=== PATIENT | male | born 1970 | race Caucasian/White ===

== ENCOUNTER 2017-03-30 17:22 | Emergency (ER) | payer MEDICAID, OTHER ==
[2017-03-30 17:22] VITALS: BMI 33.5
[2017-03-30 17:50] VITALS: RESP 18; TEMP 98.4; O2SAT 97
[2017-03-30] MEDS ORDERED: Sodium Chloride 0.9% 1,000 ML IV ONE (17:52)
[2017-03-30] MEDS ORDERED: Sodium Chloride 0.9% 1,000 ML ONE (18:13)
[2017-03-30 18:18] LABS: BASO # 0.1 K/uL (0.0-0.2); BASO % 1.2 % (0.0-2.0); EOS % 0.5 % (0.0-4.0); HEMATOCRIT 39.1 % (35.0-51.0); LYMPH # 2.6 K/uL (1.0-4.3); LYMPH % 37.4 % (20.0-40.0); MEAN CELL VOLUME 84.1 fL (80.0-94.0); MEAN CORPUSCULAR HEMOGLOBIN 28.7 pg (27.0-31.0); MEAN CORPUSCULAR HGB CONC 34.1 g/dL (33.0-37.0); MONO # 0.7 K/uL (0.0-0.8); MONO % 9.6 % (0.0-10.0); NRBC % 0.2 % (0.0-2.0); RED CELL DISTRIBUTION WIDTH 14.1 % (11.5-14.5); WHITE BLOOD COUNT 6.9 K/uL (4.8-10.8)
[2017-03-30 18:23] LABS: CHLORIDE 103 mmol/L (98-107)
[2017-03-30 18:24] LABS: SODIUM 141 mmol/L (132-148)
[2017-03-30 18:27] LABS: ALB/GLOB RATIO 1.3 (1.0-2.1); ALKALINE PHOSPHATASE 90 U/L (38-126); ALT/SGPT 51 U/L (21-72); AST/SGOT 41 U/L (17-59); BILIRUBIN,TOTAL 0.8 mg/dL (0.2-1.3); BLOOD UREA NITROGEN 13 mg/dL (9-20); CALCIUM 8.7 mg/dl (8.6-10.4); CARBON DIOXIDE 22 mmol/L (22-30); GFR AFRICAN-AMERICAN > 60; GLUCOSE,RANDOM 82 mg/dL (75-110); TOTAL PROTEIN 7.3 g/dL (6.3-8.3)
[2017-03-30 18:28] LABS: ALCOHOL SERUM < 10 mg/dl (0-10)
--- NOTE | 2017-03-30 18:31 | C.PDOC ---
History Of Present Illness A 46 year old male, whose past medical history includes hepatitis C, presents to the emergency department for periumbilical cramping pain, which began earlier this morning. The patient reports he had questionable British food for dinner last night. The patient denies any nausea, vomiting, chest pain, shortness of breath, or any other complaints at this time. The patients prior evaluation in May 10 shows injury due to heroin abuse. The patient admits to being clean for the last 7 months. Time Seen by Provider: 03/30/17 17:48 Chief Complaint (Nursing): Abdominal Pain History Per: Patient History/Exam Limitations: no limitations Onset/Duration Of Symptoms: Hrs (x earlier this morning ) Current Symptoms Are (Timing): Still Present Location Of Pain/Discomfort: Periumbilical Associated Symptoms: denies: Nausea, Vomiting Past Medical History Reviewed: Historical Data, Nursing Documentation, Vital Signs Vital Signs: Last Vital Signs Temp 98.4 F 03/30/17 17:25 Pulse 90 03/30/17 18:45 Resp 18 03/30/17 18:45 BP 135/83 03/30/17 18:45 Pulse Ox 97 03/30/17 18:45 - Medical History PMH: Hepatitis (c) Denies: Chronic Kidney Disease Surgical History: Tonsillectomy - [facility] Procedures EXC LES SOFT TISSUE NEC (10/04/14) Family History: States: No Known Family Hx, Unknown Family Hx - Social History Hx Alcohol Use: No Hx Substance Use: Yes (Heroin & cocaine) Review Of Systems Except As Marked, All Systems Reviewed And Found Negative. Cardiovascular: Negative for: Chest Pain Respiratory: Negative for: Shortness of Breath Gastrointestinal: Positive for: Abdominal Pain (periumbilical ) Physical Exam - Physical Exam Appears: Well, Non-toxic, No Acute Distress Skin: Normal Color, Warm, Dry Head: Atraumatic, Normacephalic Eye(s): bilateral: Normal Inspection, PERRL, EOMI Nose: Normal Throat: Normal Neck: Normal Cardiovascular: Rhythm Regular Respiratory: Normal Breath Sounds Gastrointestinal/Abdominal: Tenderness (periumbilical tenderness ), Other (no mcburney's point tenderness; no landry's ) Back: Normal Inspection Extremity: Normal ROM ED Course And Treatment - Laboratory Results Result Diagrams: 03/30/17 18:14 03/30/17 18:14 Lab Interpretation: Normal O2 Sat by Pulse Oximetry: 97 - Radiology CXR: Interpreted by Me CXR Interpretation: Yes: No Acute Disease - Other Rad abd x 2 X-Ray: Interpreted by Me (+ increased stool and gas) Reevaluation Time: 18:34 Reassessment Condition: Improved Medical Decision Making Medical Decision Making: Treatment Plan: -- Obstructive Series -- Toradol, IV Fluids -- Saline Lock Progress Notes: prob constipation/gas normal labs pt did not provide UA/UDS Disposition Doctor Will See Patient In The: Office Counseled Patient/Family Regarding: Studies Performed, Diagnosis - Disposition Referrals: [facility] [Outside] [facility] [Outside] Disposition: HOME/ ROUTINE Disposition Time: 18:34 Condition: GOOD Additional Instructions: trial a laxative now- recommend 1 bottle of Mag Citrate- and re-evaluate your abdominal discomfort after using the bathroom 2-3 times Return to ED in AM as needed Continue diet and exercise improvements Follow-up in our outpatient Clinic as needed. Prescriptions: Magnesium Citrate [[facility] Magnesium Citrate] 300 ml PO ONCE PRN #1 bottle PRN Reason: Constipation Instructions: Gas and Bloating (ED) Forms: Wirama (Serbian) - Clinical Impression Clinical Impression: Abdominal colic - Scribe Statement The provider has reviewed the documentation as recorded by the Scribe Alissa Vásquez All medical record entries made by the Scribe were at my direction and personally dictated by me. I have reviewed the chart and agree that the record accurately reflects my personal performance of the history, physical exam, medical decision making, and the department course for this patient. I have also personally directed, reviewed, and agree with the discharge instructions and disposition.
[2017-03-30 18:45] VITALS: BP 135/83; PULSE 90
[2017-03-30 18:47] LABS: RBC URINE 3 /hpf (0-3); URINE BACTERIA RARE (<OCC); URINE BILIRUBIN NEGATIVE (NEGATIVE); URINE BLOOD NEGATIVE (NEGATIVE); URINE COLOR Amber (YELLOW); URINE GLUCOSE (UA) NORMAL (Normal); URINE KETONE NEGATIVE (NEGATIVE); URINE LEUKOCYTE ESTERASE NEG Leu/uL (Negative); URINE PROTEIN 2+ mg/dL (NEGATIVE); URINE UROBILINOGEN NORMAL mg/dL (0.2-1.0); WBC URINE 1 /hpf (0-5)
--- NOTE | 2017-03-31 08:25 | RAD ---
PROCEDURE: Radiographs of the chest and abdomen (obstructive series) HISTORY: abd pain COMPARISON: No prior. TECHNIQUE: AP radiograph of the chest, with upright and supine radiographs of the abdomen. FINDINGS: CHEST: Lungs: Clear. Cardiovascular: Normal size heart. No pulmonary vascular congestion. Pleura: No pleural fluid. No pneumothorax. Other findings: None. ABDOMEN AND PELVIS: Bowel: Mild- moderate stool retention No evidence of mechanical obstruction. Free air: None. Bones: Unremarkable. Other findings: Possible enlarged spleen. If not already known consider ultrasound IMPRESSION: Unremarkable radiographs of chest. No evidence of mechanical bowel obstruction. Mild - moderate stool retention Possible enlarged spleen. If not already known consider ultrasound
== END 2017-03-30 18:45 | disposition home or self-care (01) ==
LOC: C.ER 17:22
DX: R10.84 Generalized abdominal pain (principal)
CPT/HCPCS: 74022; 80053; 80320; 80324; 80345; 80346; 80349; 80353; 80358; 80361; 81001; 83690; 83992; 85025; 96374; 99285; J1885; J7040

== ENCOUNTER 2017-08-08 06:46 | Inpatient (IN) | payer MEDICAID ==
[2017-08-08 06:47] VITALS: BMI 33.5
[2017-08-08] MEDS ORDERED: Vancomycin 1 GM 1 GM/250 ML BAG IV STA (07:45)
[2017-08-08] MEDS ORDERED: Cefepime 1 GM in Sodium Chloride 0.9% 50 ML IVPB STA (07:46)
[2017-08-08] MEDS ORDERED: Vancomycin 1 GM in Sodium Chloride 0.9% 200 ML IVPB STA (07:50)
[2017-08-08 08:39] LABS: BASO % 0.3 % (0.0-2.0); EOS # 0.1 K/uL (0.0-0.7); EOS % 1.5 % (0.0-4.0); HEMOGLOBIN 11.5 g/dL (12.0-18.0); LYMPH # 0.8 K/uL (1.0-4.3); LYMPH % 13.7 % (20.0-40.0); MEAN CELL VOLUME 83.8 fL (80.0-94.0); MEAN CORPUSCULAR HEMOGLOBIN 28.4 pg (27.0-31.0); MEAN CORPUSCULAR HGB CONC 33.9 g/dL (33.0-37.0); MEAN PLATELET VOLUME 8.7 fL (7.2-11.7); MONO # 0.8 K/uL (0.0-0.8); MONO % 12.3 % (0.0-10.0); NEUT # 4.4 K/uL (1.8-7.0); NEUT % 72.2 % (50.0-75.0); RBC 4.05 Mil/uL (4.40-5.90); WHITE BLOOD COUNT 6.1 K/uL (4.8-10.8)
--- NOTE | 2017-08-08 09:00 | C.PDOC ---
History Of Present Illness 47 y/o male with hx of heroin abuse IVDA, brought by ambulance to the ED for evaluation of left forearm pain/redness/swelling, constipation, right lower rib pain for 2 days. The patient states that he fell on the street and he thinks " he has broken his rib". He denies SOB, fever, abdominal pain, nausea, vomiting , diarrhea. Time Seen by Provider: 08/08/17 07:07 Chief Complaint (Nursing): GI Problem History Per: Patient, EMS Onset/Duration Of Symptoms: Days Current Symptoms Are (Timing): Still Present Severity: Moderate Quality Of Discomfort: "Pain" Associated Symptoms: Constipation. denies: Fever, Vomiting, Diarrhea Exacerbating Factors: denies: Cough Additional History Per: EMS Past Medical History Reviewed: Historical Data, Nursing Documentation, Vital Signs Vital Signs: Last Vital Signs Temp 97.6 F 08/13/17 08:25 Pulse 81 08/13/17 08:25 Resp 20 08/13/17 08:25 BP 109/72 08/13/17 08:25 Pulse Ox 97 08/13/17 08:25 - Medical History PMH: Hepatitis (c) Surgical History: Tonsillectomy - [facility] Procedures EXC LES SOFT TISSUE NEC (10/04/14) Family History: States: No Known Family Hx - Social History Hx Alcohol Use: No Hx Substance Use: Yes (Heroin & cocaine) - Immunization History Hx Tetanus Toxoid Vaccination: No Hx Influenza Vaccination: No Hx Pneumococcal Vaccination: No Review Of Systems Except As Marked, All Systems Reviewed And Found Negative. Constitutional: Negative for: Fever, Chills Cardiovascular: Negative for: Chest Pain, Palpitations Respiratory: Negative for: Cough, Shortness of Breath Gastrointestinal: Positive for: Constipation, Other (right lower rib pain ). Negative for: Nausea, Vomiting, Abdominal Pain, Diarrhea Musculoskeletal: Positive for: Arm Pain (left forearm pain ) Physical Exam - Physical Exam Appears: Non-toxic, Unkempt, Other (in mild pain ) Skin: Warm, Dry Head: Normacephalic, Other (scattered abrasions on face, forehead) Eye(s): bilateral: Normal Inspection, PERRL, EOMI Oral Mucosa: Moist Neck: Normal, Normal ROM, No Midline Cervical Tenderness, No Paracervical Tenderness, No Step Off Deformity, Supple Chest: Tenderness (TTP at right lateral rib, approx rib 10 level) Cardiovascular: Rhythm Regular Respiratory: Normal Breath Sounds, No Rales, No Rhonchi, No Wheezing, Other ( equal breath sounds B/L) Gastrointestinal/Abdominal: Normal Exam, Bowel Sounds, Soft, No Tenderness Extremity: Capillary Refill (< 2 sec all digits ), No Deformity, No Swelling, Other ( left forearm with approx 2cm area of induration with surrounding erythema, (+) TTP , no fluctuance ) Pulses: Left Radial: Normal, Right Radial: Normal Neurological/Psych: Oriented x3 Gait: Steady ED Course And Treatment - Laboratory Results Result Diagrams: 08/09/17 11:32 08/09/17 11:32 O2 Sat by Pulse Oximetry: 99 (RA) Pulse Ox Interpretation: Normal - Other Rad RIBS SERIES X-Ray: Viewed By Me, Read By Radiologist Interpretation: Accession No. : [id number]. Patient Name / ID : REYNA HUTCHINS / [id number]. Exam Date : 08/08/2017 07:48:53 ( Approved ). Study Comment : Sex / Age : M / 47Y. Creator : Monica Grace MD. Dictator : Monica Grace MD. Visual Educator : Welding Machine Operator Resistance : Monica Grace MD. Approver2 : Report Date : 08/08/2017 09:11:05. My Comment : . PROCEDURE: Radiographs of the Chest and Right Ribs. HISTORY: RIGHT SIDED RIB PAIN, S/P FALL. COMPARISON: Chest x-ray performed 09/29/14. TECHNIQUE: Frontal radiograph of the chest and multiple oblique radiographs of the right ribs were obtained. FINDINGS: RIGHT RIBS: No appreciable displaced fracture identified. LUNGS: Indeterminate right hilar/ infrahilar opacity ; pneumonia or adenopathy is not excluded. Please note that chest x-ray has limited sensitivity for the detection of pulmonary masses. PLEURA: No significant pleural effusion. No definite pneumothorax. CARDIOVASCULAR: Borderline cardiomegaly. OTHER FINDINGS: None. IMPRESSION: Indeterminate right hilar/ infrahilar opacity ; pneumonia or adenopathy is not excluded. No appreciable displaced right rib fracture. LEFT FOREARM X-Ray: Viewed By Me, Read By Radiologist Interpretation: Accession No. : [id number]. Patient Name / ID : REYNA HUTCHINS / [id number]. Exam Date : 08/08/2017 07:48:45 ( Approved ). Study Comment : Sex / Age : M / 47Y. Creator : Monica Grace MD. Dictator : Monica Grace MD. Visual Educator : Welding Machine Operator Resistance : Monica Grace MD. Approver2 : Report Date : 08/08/2017 09:01:27. My Comment : . PROCEDURE: Radiographs of the left elbow. HISTORY: ABSCESS, R/O FOREIGN BODY. COMPARISON: None available. FINDINGS: Suboptimal study due to patient condition/positioning. BONES: No acute displaced fracture. JOINTS: No dislocation. SOFT TISSUES: Unremarkable. No evidence of radiopaque foreign body. JOINT EFFUSION: No significant joint effusion. OTHER FINDINGS: None. IMPRESSION: Suboptimal positioning/limited study. No evidence of radiopaque foreign body. Progress Note: Xrays of ribs/chest and right forearm ordered and reviewed. Blood work ordered and reviewed. Patient given IV toradol, IV vancomycin, IV cefepime and IM tetanus vaccination. 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 Disposition - Disposition Disposition: HOSPITALIZED Disposition Time: 11:12 Condition: STABLE - Clinical Impression Clinical Impression: IVDU (intravenous drug user), Heroin abuse, Right arm cellulitis - Scribe Statement The provider has reviewed the documentation as recorded by the Scribe Barbara Muñiz Decision To Admit - Pt Status Changed To: Hospital Disposition Of: Inpatient - Admit Certification Admit to Inpatient:: After my assessment, the patient will require hospitalization for at least two midnights. This is because of the severity of symptoms shown, intensity of services needed, and/or the medical risk in this patient being treated as an outpatient. - InPatient: Physician Admission Certification:: see notes - . Bed Request Type: Regular Admitting Physician: Saad Foster Patient Diagnosis: Heroin abuse, Right arm cellulitis, IVDU (intravenous drug user)
[2017-08-08 09:03] LABS: ALBUMIN 3.1 g/dL (3.5-5.0); ALT/SGPT 62 U/L (21-72); AST/SGOT 66 U/L (17-59); BLOOD UREA NITROGEN 8 mg/dL (9-20); CALCIUM 7.7 mg/dl (8.6-10.4); GFR AFRICAN-AMERICAN > 60; GFR NON-AFRICAN AMERICAN > 60
--- NOTE | 2017-08-08 09:03 | RAD ---
PROCEDURE: Radiographs of the left elbow. HISTORY: ABSCESS, R/O FOREIGN BODY COMPARISON: None available. FINDINGS: Suboptimal study due to patient condition/positioning. BONES: No acute displaced fracture. JOINTS: No dislocation. SOFT TISSUES: Unremarkable. No evidence of radiopaque foreign body. JOINT EFFUSION: No significant joint effusion. OTHER FINDINGS: None IMPRESSION: Suboptimal positioning/limited study. No evidence of radiopaque foreign body.
[2017-08-08 09:06] LABS: ALB/GLOB RATIO 0.9 (1.0-2.1)
--- NOTE | 2017-08-08 09:12 | RAD ---
PROCEDURE: Radiographs of the Chest and Right Ribs. HISTORY: RIGHT SIDED RIB PAIN, S/P FALL COMPARISON: Chest x-ray performed 09/29/14 TECHNIQUE: Frontal radiograph of the chest and multiple oblique radiographs of the right ribs were obtained. FINDINGS: RIGHT RIBS: No appreciable displaced fracture identified. LUNGS: Indeterminate right hilar/ infrahilar opacity ; pneumonia or adenopathy is not excluded. Please note that chest x-ray has limited sensitivity for the detection of pulmonary masses. PLEURA: No significant pleural effusion. No definite pneumothorax. CARDIOVASCULAR: Borderline cardiomegaly. OTHER FINDINGS: None. IMPRESSION: Indeterminate right hilar/ infrahilar opacity ; pneumonia or adenopathy is not excluded. No appreciable displaced right rib fracture.
[2017-08-08] MEDS ORDERED: Potassium Chloride 20 mEq ER Tab PO STA (09:26)
[2017-08-08] MEDS ORDERED: Potassium Chloride 20 mEq ER Tab PO ONE (09:47)
[2017-08-08] MEDS ORDERED: Tetanus/Diphtheria Toxoids 0.5 ml Syringe IM ONE ×2 (09:49→10:06)
[2017-08-08] MEDS: Vancomycin 1 gm/NS 200 ml 1 GM/200 ML BAG IVPB SCH (16:24)
[2017-08-08] MEDS: Cefepime IV 1 gm in Dextrose 1 GM/50 ML BAG IVPB SCH ×2 (16:25→22:06)
[2017-08-08] MEDS: Potassium Chloride 20 mEq ER Tab PO SCH (18:18)
--- NOTE | 2017-08-08 23:36 | CP.PCM.HP ---
History of Present Illness - History of Present Illness History of Present Illness: CC: left arm pain, swelling HPI: 47 y/o white male hx heroin abuse IVDA, brought by ambulance presents to the ED c/o left forearm pain assocuated with IVD absue ending up in cellulitis , constipation, right lower rib pain, and swelling for 2 days. the patient states that he fell on the street and he thinks " he has broken his rib". The patient denies SOB, fever, abdominal pain, nausea, vomiting, and diarrhea. Present on Admission - Present on Admission Any Indicators Present on Admission: Yes Review of Systems - Review of Systems Systems not reviewed;Unavailable: Unstable Vital Signs - Constitutional Constitutional: Fatigue, Lethargy, Malaise - EENT Nose/Mouth/Throat: absent: As Per HPI, Epistaxis, Nasal Congestion, Nasal Discharge, Nasal Obstruction, Nasal Trauma, Nose Pain, Post Nasal Drip, Sinus Pain, Sinus Pressure, Bleeding Gums, Change in Voice, Dental Pain, Dry Mouth, Dysphagia, Halitosis, Hoarsness, Lip Swelling, Mouth Lesions, Mouth Pain, Odynophagia, Sore Throat, Throat Swelling, Tongue Swelling, Facial Pain, Neck Pain, Neck Mass, Other - Cardiovascular Cardiovascular: Lightheadedness, Rapid Heart Rate - Respiratory Respiratory: Dyspnea on Exertion, Chest Congestion - Gastrointestinal Gastrointestinal: Abdominal Pain, Cramping, Diarrhea, Vomiting - Genitourinary Genitourinary: absent: As Per HPI, Change in Urinary Stream, Difficulty Urinating, Dysuria, Flank Pain, Hematuria, Pyuria, Nocturia, Urinary Incontinence, Urinary Frequency, Urinary Hesitance, Urinary Urgency, Voiding Freq/Small Amts, Freq UTI, Hx Renal/Bladder Calculi, Hx /Renal Surgery, Bladder Distension, Other Past Patient History - Infectious Disease Hx of Infectious Diseases: None - Past Medical History & Family History Past Medical History?: Yes - Past Social History Smoking Status: Heavy Smoker > 10 Cigarettes Daily - CARDIAC Hx Cardiac Disorders: No - PULMONARY Hx Respiratory Disorders: No - NEUROLOGICAL Hx Neurological Disorder: No - HEENT Hx HEENT Problems: No - RENAL Hx Chronic Kidney Disease: No - HEMATOLOGICAL/ONCOLOGICAL Hx Blood Disorders: Yes Hx Hepatitis C: Yes - INTEGUMENTARY Hx Dermatological Problems: No - MUSCULOSKELETAL/RHEUMATOLOGICAL Hx Falls: Yes - GASTROINTESTINAL Hx Gastrointestinal Disorders: No - GENITOURINARY/GYNECOLOGICAL Hx Genitourinary Disorders: No - PSYCHIATRIC Hx Substance Use: Yes (Heroin & cocaine) - SURGICAL HISTORY Hx Tonsillectomy: Yes - ANESTHESIA Hx Anesthesia: Yes Hx Anesthesia Reactions: No Hx Malignant Hyperthermia: No Meds Allergies/Adverse Reactions: Allergies Allergy/AdvReac Type Severity Reaction Status Date / Time No Known Allergies Allergy Verified 05/26/17 10:31 Physical Exam - Constitutional Appears: Toxic - Head Exam Head Exam: ATRAUMATIC, NORMAL INSPECTION, NORMOCEPHALIC - Eye Exam Eye Exam: Conjunctival injection - ENT Exam ENT Exam: Mucous Membranes Dry - Neck Exam Neck exam: Positive for: Normal Inspection - Respiratory Exam Respiratory Exam: Clear to Auscultation Bilateral, NORMAL BREATHING PATTERN - Cardiovascular Exam Cardiovascular Exam: Tachycardia, +S1, +S2 - GI/Abdominal Exam GI & Abdominal Exam: Normal Bowel Sounds, Soft. absent: Tenderness - Extremities Exam Additional comments: left arm swelling, abscess Results - Vital Signs Recent Vital Signs: Last Vital Signs Temp 97.9 F 08/08/17 12:38 Pulse 60 08/08/17 12:38 Resp 17 08/08/17 12:38 BP 134/74 08/08/17 12:38 Pulse Ox 99 08/08/17 12:38 - Labs Result Diagrams: 08/08/17 08:28 08/08/17 08:28 Labs: Laboratory Results - last 24 hr 08/08/17 08/08/17 08:28 08:28 WBC 6.1 RBC 4.05 L Hgb 11.5 L Hct 33.9 L MCV 83.8 MCH 28.4 MCHC 33.9 RDW 15.0 H Plt Count 197 MPV 8.7 Neut % (Auto) 72.2 Lymph % (Auto) 13.7 L Coke % (Auto) 12.3 H Eos % (Auto) 1.5 Baso % (Auto) 0.3 Neut # 4.4 Lymph # 0.8 L Coke # 0.8 Eos # 0.1 Baso # 0.0 Sodium 129 L Potassium 3.3 L Chloride 95 L Carbon Dioxide 28 Anion Gap 9 L BUN 8 L Creatinine 0.8 Est GFR ( Amer) > 60 Est GFR (Non-Af Amer) > 60 Random Glucose 99 Calcium 7.7 L Total Bilirubin 0.6 AST 66 H D ALT 62 Alkaline Phosphatase 71 Total Protein 6.4 Albumin 3.1 L D Globulin 3.3 Albumin/Globulin Ratio 0.9 L Assessment & Plan (1) Abdominal colic Status: Acute (2) Laceration of arm Status: Acute (3) Opioid abuse with intoxication Status: Acute (4) Substance abuse Status: Acute
[2017-08-09] MEDS: Vancomycin 1 gm/NS 200 ml 1 GM/200 ML BAG IVPB SCH ×2 (02:30→14:45)
[2017-08-09] MEDS: Cefepime IV 1 gm in Dextrose 1 GM/50 ML BAG IVPB SCH ×3 (06:00→22:02)
[2017-08-09] MEDS: Potassium Chloride 20 mEq ER Tab PO SCH (10:49)
[2017-08-09 11:40] LABS: HEMOGLOBIN 13.1 g/dL (12.0-18.0); MEAN CELL VOLUME 83.8 fL (80.0-94.0); MEAN CORPUSCULAR HEMOGLOBIN 28.5 pg (27.0-31.0); MEAN PLATELET VOLUME 8.4 fL (7.2-11.7); RBC 4.59 Mil/uL (4.40-5.90); RED CELL DISTRIBUTION WIDTH 15.6 % (11.5-14.5); WHITE BLOOD COUNT 6.1 K/uL (4.8-10.8)
[2017-08-09 12:13] LABS: BLOOD UREA NITROGEN 9 mg/dL (9-20); CALCIUM 7.8 mg/dl (8.6-10.4); GFR AFRICAN-AMERICAN > 60; GFR NON-AFRICAN AMERICAN > 60
--- NOTE | 2017-08-09 21:50 | CP.PCM.PN ---
Subjective - Date & Time of Evaluation Date of Evaluation: 08/09/17 Time of Evaluation: 18:00 - Subjective Subjective: Pt seen and evalauted, left arm is infected and he is on vancomycin and cfepime , blood cultures are neg Objective - Vital Signs/Intake and Output Vital Signs (last 24 hours): Temp Pulse Resp BP Pulse Ox 98.1 F 68 20 129/67 100 08/09/17 16:00 08/09/17 16:00 08/09/17 16:00 08/09/17 16:00 08/09/17 16:00 Intake and Output: 08/09/17 08/10/17 18:59 06:59 Intake Total 730 Balance 730 - Medications Medications: Current Medications Clonazepam (Klonopin) 0.5 mg PO BID [facility] Last Admin: 08/09/17 17:39 Dose: 0.5 mg Cefepime HCl (Maxipime Iv 1 Gm Premix) 1 gm in 50 mls @ 100 mls/hr IVPB Q8H [facility] Last Admin: 08/09/17 14:13 Dose: 100 mls/hr Vancomycin/Sodium Chloride (Vancomycin 1 Gm/Ns 200 Ml) 1 gm in 200 mls @ 133.333 mls/hr IVPB Q12H [facility] Last Admin: 08/09/17 14:45 Dose: 133.333 mls/hr Pneumococcal Polyvalent Vaccine (Pneumovax 23 Vaccine) 0.5 ml IM .ONCE ONE Stop: 08/11/17 10:01 Potassium Chloride (K-Dur 20 Meq Er Tab) 20 meq PO DAILY [facility] Stop: 08/10/17 23:59 Last Admin: 08/09/17 10:49 Dose: 20 meq - Labs Labs: 08/09/17 11:32 08/09/17 11:32 - Constitutional Appears: No Acute Distress - Head Exam Head Exam: ATRAUMATIC, NORMAL INSPECTION, NORMOCEPHALIC - Eye Exam Eye Exam: EOMI, Normal appearance, PERRL Pupil Exam: NORMAL ACCOMODATION, PERRL - Respiratory Exam Respiratory Exam: Clear to Ausculation Bilateral, NORMAL BREATHING PATTERN - Cardiovascular Exam Cardiovascular Exam: REGULAR RHYTHM, +S1, +S2. absent: Murmur - GI/Abdominal Exam GI & Abdominal Exam: Soft, Normal Bowel Sounds. absent: Tenderness Assessment and Plan (1) Abdominal colic Status: Acute (2) Laceration of arm Status: Acute (3) Opioid abuse with intoxication Status: Acute (4) Substance abuse Status: Acute (5) Cellulitis of arm Assessment & Plan: on vancomycin cefepime'blood cultures neg Status: Acute
[2017-08-10] MEDS: Vancomycin 1 gm/NS 200 ml 1 GM/200 ML BAG IVPB SCH ×2 (02:52→15:55)
[2017-08-10] MEDS: Cefepime IV 1 gm in Dextrose 1 GM/50 ML BAG IVPB SCH ×3 (06:00→22:00)
[2017-08-10 09:15] VITALS: RESP 20
[2017-08-10] MEDS: Potassium Chloride 20 mEq ER Tab PO SCH (09:23)
[2017-08-10] MEDS ORDERED: Aluminum Hydroxide/Magnesium Hydroxide Susp (30 mL) PO PRN (15:29)
--- NOTE | 2017-08-10 15:29 | PCM.PSYCH ---
Initial Psychiatric Evaluation - Initial Psychiatric Evaluation Type of Admission: Voluntary Legal Status: Capacity Chief Complaint (in patient's own words): I'm withdrawing from heroin.' Current Medications: Active Medications Generic Name Dose Route Start Last Admin Trade Name Eugenie PRN Reason Stop Dose Admin Clonazepam 0.5 mg 08/08/17 18:00 08/10/17 09:23 Klonopin PO 0.5 mg BID [facility] Administration Cefepime HCl 1 gm in 50 mls @ 100 mls/hr 08/08/17 15:00 08/10/17 14:52 Maxipime Iv 1 Gm Premix IVPB 100 mls/hr Q8H [facility] Administration Vancomycin/Sodium Chloride 1 gm in 200 mls @ 133.333 mls/hr 08/08/17 15:30 02:52 Vancomycin 1 Gm/Ns 200 Ml IVPB 133.333 mls/hr Q12H [facility] Administration Pneumococcal Polyvalent Vaccine 0.5 ml 08/11/17 10:00 Pneumovax 23 Vaccine IM 08/11/17 10:01 .ONCE ONE Potassium Chloride 20 meq 08/08/17 18:00 08/10/17 09:23 K-Dur 20 Meq Er Tab PO 08/10/17 23:59 20 meq DAILY [facility] Administration Past Psychiatric History - Past Psychiatric History Previous Treatment History: Inpatient Pertinent Medical Hx (Current Medical&Sleep Prob, Allergies): Allergies Allergy/AdvReac Type Severity Reaction Status Date / Time No Known Allergies Allergy Verified 05/26/17 10:31 No Known Home Med 08/08/17 Review of Systems - Review of Systems All systems: reviewed and no additional remarkable complaints except - Psychiatric Psychiatric: Anxiety, Irritability Mental Status Examination - Personal Presentation Personal Presentation: Looks stated age - Affect Affect: Constricted - Motor Activity Motor Activity: Calm - Reliability in Providing Information Reliability in Providing Information: Fair - Speech Speech: Organized - Mood Mood: Anxious - Formal Thought Process Formal Thought Process: No Impairment - Obsessions/Compulsions Obsessions: No Compulsions: No - Cognitive Functions Orientation: Person, Place, Situation, Time Sensorium: Alert Attention/Concentration: Attentive Abstract Thinking: [place] Estimate of Intelligence: Below average Judgement: Imparied, as evidence by: Poor judgement, Intact, as evidence by: Insight regarding need for hospitalization - Risk Risk: Withdrawal, Diminished functioning - Limitations Limitations: Living alone DSM 5 DX - DSM 5 DSM 5 Diagnosis: Opiate use disorder severe Opiate withdrawal - Recommended/Plan of Treatment Treatment Recommendations and Plan of Treatment: Opiate use disorder severe Opiate withdrawal - Smoking Cessation Smoking Cessation Initiated: No
[2017-08-10 16:07] LABS: BARBITURATES, UR NEGATIVE (NEGATIVE); BENZODIAZEPINES, UR NEGATIVE (NEGATIVE); OPIATES, UR NEGATIVE (NEGATIVE); PHENCYCLIDINE, UR NEGATIVE (NEGATIVE)
[2017-08-10] MEDS: Vitamins A & D Oint UD Foilpak TOP SCH (20:02)
--- NOTE | 2017-08-10 22:45 | CP.PCM.PN ---
Subjective - Date & Time of Evaluation Date of Evaluation: 08/10/17 Time of Evaluation: 17:00 - Subjective Subjective: Pt seen and examined at bedside, improved cellulitis in left arm, decreased redness, swelling, pain, afebrile, pt is on IV antibiotics and repeat blood cultures will be done Objective - Vital Signs/Intake and Output Vital Signs (last 24 hours): Temp Pulse Resp BP Pulse Ox 97.5 F L 67 20 131/81 98 08/10/17 15:15 08/10/17 15:15 08/10/17 15:15 08/10/17 15:15 08/10/17 15:15 Intake and Output: 08/10/17 08/11/17 18:59 06:59 Intake Total 650 1050 Balance 650 1050 - Medications Medications: Current Medications Al Hydrox/Mg Hydrox/Simethicone (Maalox 30 Ml) 30 ml PO TID PRN PRN Reason: Indigestion / Heartburn Clonazepam (Klonopin) 0.5 mg PO BID [facility]LY [facility], [facility]1983 Last Admin: 08/10/17 17:23 Dose: 0.5 mg Clonidine HCl (Catapres) 0.1 mg PO Q8 PRN PRN Reason: COWS Score More or Equal to 5 Last Admin: 08/10/17 22:25 Dose: 0.1 mg Hydroxyzine HCl (Atarax) 25 mg PO Q6 PRN PRN Reason: Agitation Cefepime HCl (Maxipime Iv 1 Gm Premix) 1 gm in 50 mls @ 100 mls/hr IVPB Q8H [facility]LY [facility], [facility]1983 Last Admin: 08/10/17 22:00 Dose: 100 mls/hr Vancomycin/Sodium Chloride (Vancomycin 1 Gm/Ns 200 Ml) 1 gm in 200 mls @ 133.333 mls/hr IVPB Q12H [facility], [facility]1983 Last Admin: 08/10/17 15:55 Dose: 133.333 mls/hr Loperamide HCl (Imodium) 2 mg PO Q8 PRN PRN Reason: Diarrhea Methadone HCl (Methadone) 15 mg PO DAILY [facility] PRN Reason: Taper Stop: 08/14/17 09:59 Ondansetron HCl (Zofran Tab) 4 mg PO Q8 PRN PRN Reason: Nausea/Vomiting Pneumococcal Polyvalent Vaccine (Pneumovax 23 Vaccine) 0.5 ml IM .ONCE ONE Stop: 08/11/17 10:01 Potassium Chloride (K-Dur 20 Meq Er Tab) 20 meq PO DAILY [place] Stop: 08/10/17 23:59 Last Admin: 08/10/17 09:23 Dose: 20 meq Pseudoephedrine HCl (Sudafed Tab) 60 mg PO QID PRN PRN Reason: Nasal/Sinus Congestion Vitamin A (Vitamin A & D Oint Ud Foilpak) 0.5 ea TOP Q4 [facility] Last Admin: 08/10/17 20:02 Dose: 0.5 ea - Labs Labs: 08/09/17 11:32 08/09/17 11:32 - Constitutional Appears: No Acute Distress - Head Exam Head Exam: ATRAUMATIC, NORMAL INSPECTION, NORMOCEPHALIC - Eye Exam Eye Exam: EOMI, Normal appearance, PERRL Pupil Exam: NORMAL ACCOMODATION, PERRL - Respiratory Exam Respiratory Exam: Clear to Ausculation Bilateral, NORMAL BREATHING PATTERN - Cardiovascular Exam Cardiovascular Exam: REGULAR RHYTHM, +S1, +S2. absent: Murmur - GI/Abdominal Exam GI & Abdominal Exam: Soft, Normal Bowel Sounds. absent: Tenderness - Rectal Exam Rectal Exam: Deferred - Neurological Exam Neurological Exam: Alert, Awake, CN II-XII Intact, Normal Gait, Oriented x3 - Skin Skin Exam: Erythema Additional comments: redness, swelling on left arm Assessment and Plan (1) Abdominal colic Status: Acute (2) Laceration of arm Status: Acute (3) Opioid abuse with intoxication Status: Acute (4) Substance abuse Status: Acute (5) Cellulitis of arm Assessment & Plan: pt is on IV antibiotics and repeat blood cultures will be done Status: Acute
[2017-08-11] MEDS: Vitamins A & D Oint UD Foilpak TOP SCH ×6 (00:11→20:40)
[2017-08-11] MEDS: Vancomycin 1 gm/NS 200 ml 1 GM/200 ML BAG IVPB SCH ×2 (02:55→14:31)
[2017-08-11] MEDS: Cefepime IV 1 gm in Dextrose 1 GM/50 ML BAG IVPB SCH ×3 (06:00→22:05)
--- NOTE | 2017-08-11 08:58 | CP.PCM.PN ---
Subjective - Date & Time of Evaluation Date of Evaluation: 08/11/17 Time of Evaluation: 17:00 - Subjective Subjective: Pt seen and examined, pt is on vancomycin, zosyn for left UE cellulitis most likely MRSA, on wound care Objective - Vital Signs/Intake and Output Vital Signs (last 24 hours): Temp Pulse Resp BP Pulse Ox 97.9 F 67 20 124/74 98 08/11/17 08:04 08/11/17 08:04 08/11/17 08:04 08/11/17 08:04 08/11/17 08:04 Intake and Output: 08/11/17 08/11/17 06:59 18:59 Intake Total 1850 Balance 1850 - Medications Medications: Current Medications Al Hydrox/Mg Hydrox/Simethicone (Maalox 30 Ml) 30 ml PO TID PRN PRN Reason: Indigestion / Heartburn Clonazepam (Klonopin) 0.5 mg PO BID [facility] Last Admin: 08/10/17 17:23 Dose: 0.5 mg Clonidine HCl (Catapres) 0.1 mg PO Q8 PRN PRN Reason: COWS Score More or Equal to 5 Last Admin: 08/10/17 22:25 Dose: 0.1 mg Hydroxyzine HCl (Atarax) 25 mg PO Q6 PRN PRN Reason: Agitation Cefepime HCl (Maxipime Iv 1 Gm Premix) 1 gm in 50 mls @ 100 mls/hr IVPB Q8H [facility] Last Admin: 08/11/17 06:00 Dose: 100 mls/hr Vancomycin/Sodium Chloride (Vancomycin 1 Gm/Ns 200 Ml) 1 gm in 200 mls @ 133.333 mls/hr IVPB Q12H [facility] Last Admin: 08/11/17 02:55 Dose: 133.333 mls/hr Loperamide HCl (Imodium) 2 mg PO Q8 PRN PRN Reason: Diarrhea Methadone HCl (Methadone) 15 mg PO DAILY [facility] PRN Reason: Taper Stop: 08/14/17 09:59 Ondansetron HCl (Zofran Tab) 4 mg PO Q8 PRN PRN Reason: Nausea/Vomiting Pneumococcal Polyvalent Vaccine (Pneumovax 23 Vaccine) 0.5 ml IM .ONCE ONE Stop: 08/11/17 10:01 Pseudoephedrine HCl (Sudafed Tab) 60 mg PO QID PRN PRN Reason: Nasal/Sinus Congestion Vitamin A (Vitamin A & D Oint Ud Foilpak) 0.5 ea TOP Q4 [facility] Last Admin: 08/11/17 03:00 Dose: 0.5 ea - Labs Labs: 08/09/17 11:32 08/09/17 11:32 - Constitutional Appears: No Acute Distress - Head Exam Head Exam: ATRAUMATIC, NORMAL INSPECTION, NORMOCEPHALIC - Eye Exam Eye Exam: EOMI, Normal appearance, PERRL Pupil Exam: NORMAL ACCOMODATION, PERRL - ENT Exam ENT Exam: Mucous Membranes Moist, Normal Exam - Respiratory Exam Respiratory Exam: Clear to Ausculation Bilateral, NORMAL BREATHING PATTERN - Cardiovascular Exam Cardiovascular Exam: REGULAR RHYTHM, +S1, +S2. absent: Murmur - GI/Abdominal Exam GI & Abdominal Exam: Soft, Normal Bowel Sounds. absent: Tenderness Assessment and Plan (1) Abdominal colic Status: Acute (2) Laceration of arm Status: Acute (3) Opioid abuse with intoxication Status: Acute (4) Substance abuse Status: Acute (5) Cellulitis of arm Status: Acute
[2017-08-11] MEDS ORDERED: Pneumococcal 23-Valent Vaccine IM ONE (10:00)
[2017-08-11] MEDS ORDERED: Influenza Vaccine 60 mcg/0.5 mL SYR (4YR UP) IM ONE (10:00)
[2017-08-12] MEDS: Vancomycin 1 gm/NS 200 ml 1 GM/200 ML BAG IVPB SCH ×2 (03:32→16:19)
[2017-08-12] MEDS: Vitamins A & D Oint UD Foilpak TOP SCH ×6 (04:00→20:17)
[2017-08-12] MEDS: Cefepime IV 1 gm in Dextrose 1 GM/50 ML BAG IVPB SCH ×3 (06:12→22:52)
--- NOTE | 2017-08-12 22:39 | CP.PCM.PN ---
Subjective - Date & Time of Evaluation Date of Evaluation: 08/12/17 Time of Evaluation: 17:40 - Subjective Subjective: Pt is clinically same on antibiotics for celullitis of left arm due to IVDA Objective - Vital Signs/Intake and Output Vital Signs (last 24 hours): Temp Pulse Resp BP Pulse Ox 97.9 F 82 20 109/68 96 08/12/17 15:15 08/12/17 15:15 08/12/17 15:15 08/12/17 15:15 08/12/17 15:15 Intake and Output: 08/12/17 08/13/17 18:59 06:59 Intake Total 850 Balance 850 - Medications Medications: Current Medications Al Hydrox/Mg Hydrox/Simethicone (Maalox 30 Ml) 30 ml PO TID PRN PRN Reason: Indigestion / Heartburn Clonazepam (Klonopin) 0.5 mg PO BID [facility] Last Admin: 08/12/17 17:16 Dose: 0.5 mg Clonidine HCl (Catapres) 0.1 mg PO Q8 PRN PRN Reason: COWS Score More or Equal to 5 Last Admin: 08/10/17 22:25 Dose: 0.1 mg Hydroxyzine HCl (Atarax) 25 mg PO Q6 PRN PRN Reason: Agitation Cefepime HCl (Maxipime Iv 1 Gm Premix) 1 gm in 50 mls @ 100 mls/hr IVPB Q8H [facility] Last Admin: 08/12/17 14:16 Dose: 100 mls/hr Vancomycin/Sodium Chloride (Vancomycin 1 Gm/Ns 200 Ml) 1 gm in 200 mls @ 133.333 mls/hr IVPB Q12H [facility] Last Admin: 08/12/17 16:19 Dose: 133.333 mls/hr Loperamide HCl (Imodium) 2 mg PO Q8 PRN PRN Reason: Diarrhea Methadone HCl (Methadone) 10 mg PO DAILY [facility] PRN Reason: Taper Stop: 08/15/17 09:59 Last Admin: 08/12/17 10:02 Dose: 10 mg Ondansetron HCl (Zofran Tab) 4 mg PO Q8 PRN PRN Reason: Nausea/Vomiting Pseudoephedrine HCl (Sudafed Tab) 60 mg PO QID PRN PRN Reason: Nasal/Sinus Congestion Vitamin A (Vitamin A & D Oint Ud Foilpak) 0.5 ea [facility] Q4 [facility] Last Admin: 08/12/17 16:23 Dose: 0.5 ea - Labs Labs: 08/09/17 11:32 08/09/17 11:32 - Constitutional Appears: No Acute Distress - Head Exam Head Exam: ATRAUMATIC, NORMAL INSPECTION, NORMOCEPHALIC - Eye Exam Eye Exam: EOMI, Normal appearance, PERRL Pupil Exam: NORMAL ACCOMODATION, PERRL - Cardiovascular Exam Cardiovascular Exam: REGULAR RHYTHM, +S1, +S2. absent: Murmur - GI/Abdominal Exam GI & Abdominal Exam: Soft, Normal Bowel Sounds. absent: Tenderness - Rectal Exam Rectal Exam: NORMAL INSPECTION - Neurological Exam Neurological Exam: Alert, Awake, CN II-XII Intact, Normal Gait, Oriented x3 Assessment and Plan (1) Abdominal colic Status: Acute (2) Laceration of arm Status: Acute (3) Opioid abuse with intoxication Status: Acute (4) Substance abuse Status: Acute (5) Cellulitis of arm Status: Acute
[2017-08-13] MEDS: Vancomycin 1 gm/NS 200 ml 1 GM/200 ML BAG IVPB SCH (03:30)
[2017-08-13] MEDS: Vitamins A & D Oint UD Foilpak TOP SCH ×3 (04:29→09:37)
[2017-08-13] MEDS: Cefepime IV 1 gm in Dextrose 1 GM/50 ML BAG IVPB SCH (06:11)
[2017-08-13 08:26] VITALS: BP 109/72; PULSE 81; TEMP 97.6
--- NOTE | 2017-08-13 21:09 | CP.PCM.DIS ---
Provider - Provider Date of Admission: 08/08/17 11:12 Attending physician: Saad Foster MD Diagnosis - Discharge Diagnosis (1) Abdominal colic Status: Acute (2) Laceration of arm Status: Acute (3) Opioid abuse with intoxication Status: Acute (4) Substance abuse Status: Acute (5) Cellulitis of arm Status: Acute Hospital Course - Lab Results Lab Results: Micro Results 08/08/17 08:30 Blood Blood Culture - Final NO GROWTH AFTER 5 DAYS 08/08/17 08:30 Blood Gram Stain - Final TEST NOT PERFORMED 08/08/17 08:00 Blood Blood Culture - Final NO GROWTH AFTER 5 DAYS 08/08/17 08:00 Blood Gram Stain - Final TEST NOT PERFORMED 08/12/17 15:18 Abscess - Arm-Left Gram Stain - Final Most Recent Lab Values WBC 6.1 K/uL (4.8-10.8) 08/09/17 11:32 RBC 4.59 Mil/uL (4.40-5.90) 08/09/17 11:32 Hgb 13.1 g/dL (12.0-18.0) 08/09/17 11:32 Hct 38.5 % (35.0-51.0) 08/09/17 11:32 MCV 83.8 fL (80.0-94.0) 08/09/17 11:32 MCH 28.5 pg (27.0-31.0) 08/09/17 11:32 MCHC 34.0 g/dL (33.0-37.0) 08/09/17 11:32 RDW 15.6 % (11.5-14.5) H 08/09/17 11:32 Plt Count 193 K/uL (130-400) 08/09/17 11:32 MPV 8.4 fL (7.2-11.7) 08/09/17 11:32 Neut % (Auto) 72.2 % (50.0-75.0) 08/08/17 08:28 Lymph % (Auto) 13.7 % (20.0-40.0) L 08/08/17 08:28 [place] % (Auto) 12.3 % (0.0-10.0) H 08/08/17 08:28 Eos % (Auto) 1.5 % (0.0-4.0) 08/08/17 08:28 Baso % (Auto) 0.3 % (0.0-2.0) 08/08/17 08:28 Neut # 4.4 K/uL (1.8-7.0) 08/08/17 08:28 Lymph # 0.8 K/uL (1.0-4.3) L 08/08/17 08:28 [place] # 0.8 K/uL (0.0-0.8) 08/08/17 08:28 Eos # 0.1 K/uL (0.0-0.7) 08/08/17 08:28 Baso # 0.0 K/uL (0.0-0.2) 08/08/17 08:28 Sodium 130 mmol/L (132-148) L 08/09/17 11:32 Potassium 3.8 mmol/L (3.6-5.2) 08/09/17 11:32 Chloride 98 mmol/L (98-107) 08/09/17 11:32 Carbon Dioxide 28 mmol/L (22-30) 08/09/17 11:32 Anion Gap 9 (10-20) L 08/09/17 11:32 BUN 9 mg/dL (9-20) 08/09/17 11:32 Creatinine 0.7 mg/dL (0.8-1.5) L 08/09/17 11:32 Est GFR ( Amer) > 60 08/09/17 11:32 Est GFR (Non-Af Amer) > 60 08/09/17 11:32 Random Glucose 99 mg/dL (75-110) 08/09/17 11:32 Calcium 7.8 mg/dl (8.6-10.4) L 08/09/17 11:32 Total Bilirubin 0.6 mg/dL (0.2-1.3) 08/08/17 08:28 AST 66 U/L (17-59) H D 08/08/17 08:28 ALT 62 U/L (21-72) 08/08/17 08:28 Alkaline Phosphatase 71 U/L (38-126) 08/08/17 08:28 Total Protein 6.4 g/dL (6.3-8.3) 08/08/17 08:28 Albumin 3.1 g/dL (3.5-5.0) L D 08/08/17 08:28 Globulin 3.3 gm/dL (2.2-3.9) 08/08/17 08:28 Albumin/Globulin Ratio 0.9 (1.0-2.1) L 08/08/17 08:28 Urine Opiates Screen Negative (NEGATIVE) 08/10/17 15:36 Urine Methadone Screen Negative (NEGATIVE) 08/10/17 15:36 Ur Barbiturates Screen Negative (NEGATIVE) 08/10/17 15:36 Ur Phencyclidine Scrn Negative (NEGATIVE) 08/10/17 15:36 Ur Amphetamines Screen Negative (NEGATIVE) 08/10/17 15:36 U Benzodiazepines Scrn Negative (NEGATIVE) 08/10/17 15:36 U Oth Cocaine Metabols Positive (NEGATIVE) H 08/10/17 15:36 U Cannabinoids Screen Negative (NEGATIVE) 08/10/17 15:36 Discharge Exam - Head Exam Head Exam: ATRAUMATIC, NORMAL INSPECTION, NORMOCEPHALIC Discharge Plan - Follow Up Plan Condition: GOOD Disposition: ELOPED FROM NURSING UNIT
[2017-08-14 15:38] VITALS: O2SAT 99
== END 2017-08-13 10:52 | disposition left against medical advice (07) | DRG 743 ==
LOC: C.ER 06:46 → C.9E 11:12 → C.3T 12:17
PROVIDERS: ADMIT Internal Medicine; ATTEND Internal Medicine
PROC: HZ2ZZZZ Detoxification Services for Substance Abuse Treatment (ICD-10-PCS; principal; 2017-08-08)
DX: F11.23 Opioid dependence with withdrawal (principal); F17.219 Nicotine dependence, cigarettes, with unspecified nicotine-induced disorders; L03.113 Cellulitis of right upper limb; L03.114 Cellulitis of left upper limb; K59.00 Constipation, unspecified

== ENCOUNTER 2018-06-01 13:52 | Inpatient (IN) | payer MEDICAID ==
[2018-06-01 13:53] VITALS: BMI 33.5
[2018-06-01] MEDS ORDERED: Sodium Chloride 0.9% 1,000 ML IV ONE (14:40)
--- NOTE | 2018-06-01 14:40 | C.PDOC ---
History Of Present Illness 47-YEAR-OLD MALE, PRESENTS TO THE EMERGENCY DEPARTMENT WITH MULT COMPLAINTS. PT CO COUGH, SOB, CHEST BEN X 2 WEEKS. " I HAVE BRONCHITIS". +SMOKE DENIES HO ASTHMA. DENIES CP. HO PRIOR OPIATE ABUSE. ALSO CO EXAC CHRONIC UMB HERNIA X 2 DAYS. NO FEVER, NV. NPO SINCE THIS MORNING. EXAM NAD NONTOXIC HEENT PERRLA LUNGS CTA B/L OCC EXP WHEEZE SPEAKING FULL SENTENCES NO RETRACTIONS CV RRR ABD SOFT +PERIUMB HERNIA REDUCIBLE W LOCAL TEND NONDIST PSYCH AWAKE NO ACUTE INTOX SKIN WARM DRY REMAINDER NEG <FaisalWilla - Last Filed: 06/01/18 18:42> History Per: Patient History/Exam Limitations: no limitations <Willa Malone - Last Filed: 06/01/18 18:42> <Mckay Soares - Last Filed: 06/01/18 19:43> Time Seen by Provider: 06/01/18 14:26 Chief Complaint (Nursing): Shortness Of Breath Past Medical History Reviewed: Historical Data, Nursing Documentation, Vital Signs Vital Signs: Last Vital Signs Temp 98.7 F 06/01/18 13:58 Pulse 88 06/01/18 13:58 Resp 22 06/01/18 13:58 BP 116/65 06/01/18 13:58 Pulse Ox 97 06/01/18 13:58 - Medical History PMH: Hepatitis (c) Denies: Chronic Kidney Disease Surgical History: Tonsillectomy - [facility] DETOXIFICATION SERVICES FOR SUBSTANCE ABUSE TREATMENT (08/08/17) EXC LES SOFT TISSUE NEC (10/04/14) Family History: States: No Known Family Hx - Social History Hx Tobacco Use: Yes Hx Alcohol Use: No Hx Substance Use: Yes - Immunization History Hx Tetanus Toxoid Vaccination: No Hx Influenza Vaccination: No Hx Pneumococcal Vaccination: No <FaisalWilla - Last Filed: 06/01/18 18:42> Vital Signs: Last Vital Signs Temp 98.7 F 06/01/18 13:58 Pulse 100 H 06/01/18 17:53 Resp 18 06/01/18 17:53 BP 131/67 06/01/18 17:53 Pulse Ox 97 06/01/18 18:45 - [facility] DETOXIFICATION SERVICES FOR SUBSTANCE ABUSE TREATMENT (08/08/17) EXC LES SOFT TISSUE NEC (10/04/14) <Mckay Soares - Last Filed: 06/01/18 19:43> Review Of Systems Constitutional: Negative for: Fever ENT: Positive for: Nose Congestion Respiratory: Positive for: Cough, Shortness of Breath Gastrointestinal: Negative for: Nausea, Vomiting Musculoskeletal: Negative for: Back Pain <Willa Malone - Last Filed: 06/01/18 18:42> Physical Exam - Physical Exam Appears: Non-toxic, No Acute Distress Skin: Warm, Dry, No Rash Head: Atraumatic, Normacephalic Eye(s): bilateral: Normal Inspection, PERRL, EOMI Nose: Normal Oral Mucosa: Moist Lips: Normal Appearing Neck: Normal ROM Cardiovascular: Rhythm Regular, No Murmur Respiratory: No Accessory Muscle Use, Wheezing (CTA B/L OCC EXP WHEEZE SPEAKING FULL SENTENCES NO RETRACTIONS) Gastrointestinal/Abdominal: Soft, Hernia (+PERIUMB HERNIA REDUCIBLE W LOCAL TEND NONDIST) Extremity: Normal ROM, No Deformity Neurological/Psych: Oriented x3, Normal Speech, Other (AWAKE NO ACUTE INTOX) <Willa Malone - Last Filed: 06/01/18 18:42> ED Course And Treatment - Laboratory Results Result Diagrams: 06/01/18 15:04 06/01/18 15:04 ECG: Interpreted By Nj ECG Rhythm: Sinus Rhythm ECG Interpretation: Normal Rate From EC O2 Sat by Pulse Oximetry: 97 Pulse Ox Interpretation: Normal (RA) - Radiology CXR: Read By Radiologist - CT Scan/US CHEST/A/P Other Rad Studies (CT/US): Read By Radiologist (D/W DR STANLEY: ) <Willa Malone - Last Filed: 06/01/18 18:42> - Laboratory Results Result Diagrams: 06/01/18 15:04 06/01/18 15:04 <Mckay Soares - Last Filed: 06/01/18 19:43> Progress - Re-Evaluation Re-evaluation Note: 06/01/18 16:02 NARD [address] PEND[address] 06/01/18 17:39 CT RESULTS D/W DR STANLEY PENDING CALLBACK DR CAMACHO [employer] 06/01/18 18:[address] [employer] ONLY, LAST USE 2 DAYS AGO D/W DR CAMACHO AWARE OF ER FINDINGS. REQUESTS DR DWYER FOR SURG CONSULT - Data Reviewed Data Reviewed: Lab, Diagnostic imaging, EKG, Old records <Willa Malone - Last Filed: 06/01/18 18:42> Disposition Counseled Patient/Family Regarding: Studies Performed, Diagnosis - Disposition Disposition Time: 18:42 - POA Present On Arrival: None <Willa Malone - Last Filed: 06/01/18 18:42> Discussed With .: Halina Camacho Doctor Will See Patient In The: Hospital Counseled Patient/Family Regarding: Studies Performed, Diagnosis - POA Present On Arrival: None <Mckay Soares - Last Filed: 06/01/18 19:43> - Disposition Disposition: HOSPITALIZED Condition: SERIOUS Forms: [facility] (Eritrean) - Clinical Impression Clinical Impression: Opiate dependence, Pneumonia, Umbilical hernia without obstruction or gangrene - Scribe Statement The provider has reviewed the documentation as recorded by the Scribe (Lb D[place]) All medical record entries made by the Scribe were at my direction and personally dictated by me. I have reviewed the chart and agree that the record accurately reflects my personal performance of the history, physical exam, medical decision making, and the department course for this patient. I have also personally directed, reviewed, and agree with the discharge instructions and disposition. <Willa Malone - Last Filed: 06/01/18 18:42> Physician Patient Turnover Patient Signed Over To: Mckay Soares Handoff Comments: FU SURG, DISPO <Willa Malone - Last Filed: 06/01/18 18:42> Decision To Admit <Willa Malone - Last Filed: 06/01/18 18:42> - Pt Status Changed To: Hospital Disposition Of: Inpatient - Admit Certification Admit to Inpatient:: After my assessment, the patient will require hospitalization for at least two midnights. This is because of the severity of symptoms shown, intensity of services needed, and/or the medical risk in this patient being treated as an outpatient. - InPatient: Physician Admission Certification: I certify that this patient requires 2 or more midnights of care for the following reason:: After my assessment, the patient will require hospitalization for at least two midnights. This is because of the severity of symptoms shown, intensity of services needed, and/or the medical risk in this patient being treated as an outpatient. - . Bed Request Type: Regular Admitting Physician: Halina Camacho <Mckay Soares - Last Filed: 06/01/18 19:43> - . Patient Diagnosis: Opiate dependence, Pneumonia, Umbilical hernia without obstruction or gangrene
[2018-06-01] MEDS ORDERED: MethylPREDNISolone 40 mg Vial IVP STA (14:43)
[2018-06-01] MEDS: Albuterol-Ipratrop 3 mg / 0.5 (3 ml) UD IH SCH ×3 (14:45→15:15)
[2018-06-01 15:09] LABS: BASO # 0.1 K/uL (0.0-0.2); BASO % 0.6 % (0.0-2.0); EOS # 0.1 K/uL (0.0-0.7); EOS % 0.4 % (0.0-4.0); HEMOGLOBIN 12.5 g/dL (12.0-18.0); LYMPH # 1.2 K/uL (1.0-4.3); LYMPH % 10.1 % (20.0-40.0); MEAN CORPUSCULAR HEMOGLOBIN 26.8 pg (27.0-31.0); MEAN CORPUSCULAR HGB CONC 33.5 g/dL (33.0-37.0); MEAN PLATELET VOLUME 8.9 fL (7.2-11.7); MONO # 0.5 K/uL (0.0-0.8); MONO % 4.3 % (0.0-10.0); NEUT # 10.1 K/uL (1.8-7.0); NEUT % 84.6 % (50.0-75.0); RBC 4.65 Mil/uL (4.40-5.90); RED CELL DISTRIBUTION WIDTH 16.1 % (11.5-14.5); WHITE BLOOD COUNT 11.9 K/uL (4.8-10.8)
[2018-06-01] MEDS ORDERED: Sodium Chloride 0.9% 1,000 ML ONE (15:14)
[2018-06-01] MEDS ORDERED: MethylPREDNISolone 40 mg Vial ONE (15:14)
[2018-06-01 15:15] LABS: MEAN CELL VOLUME 80.1 fL (80.0-94.0)
[2018-06-01 15:24] LABS: ALB/GLOB RATIO 0.8 (1.0-2.1); ALBUMIN 2.7 g/dL (3.5-5.0); BLOOD UREA NITROGEN 13 mg/dL (9-20); CALCIUM 7.4 mg/dl (8.6-10.4); GFR NON-AFRICAN AMERICAN > 60; LIPASE 17 U/L (23-300)
[2018-06-01 15:27] LABS: VENOUS BLOOD GAS BASE EXCESS 4.8 mmol/L (0.0-2.0); VENOUS BLOOD GAS PCO2 45 mmHg (40-60); VENOUS BLOOD GAS PO2 25 mm/Hg (30-55); VENOUS BLOOD PH 7.43 (7.32-7.43)
[2018-06-01 15:32] LABS: ALT/SGPT 125 U/L (21-72); AST/SGOT 162 U/L (17-59)
--- NOTE | 2018-06-01 15:40 | RAD ---
Date of service: 06/01/2018 PROCEDURE: CHEST RADIOGRAPH, 1 VIEW HISTORY: abd pain COMPARISON: 08/08/2017 FINDINGS: LUNGS: Interval left inferior hemithoracic opacification. PLEURA: No pneumothorax appreciated. Left pleural effusion along with left mid and lower lung zone infiltrate and/or atelectasis. CARDIOVASCULAR: Mild cardiomegaly. Probable mild concomitant pulmonary venous congestion. There is absence of aortic atherosclerotic calcification on x-ray. OSSEOUS STRUCTURES: No significant abnormalities. VISUALIZED UPPER ABDOMEN: Normal. OTHER FINDINGS: None. IMPRESSION: Interval 1/2 left hemithoracic opacification-left pleural effusion with left mid/lower lung zone infiltrates and/or atelectasis. Mild cardiomegaly. Probable mild concomitant pulmonary venous congestion. Comments: Study marked for PA review .
[2018-06-01] MEDS ORDERED: Azithromycin 500 MG in Sodium Chloride 0.9% 250 ML IV STA (16:04)
[2018-06-01] MEDS ORDERED: cefTRIAXone IV 1 gm in Dextros 50 ML IV STA (16:04)
[2018-06-01] MEDS ORDERED: Azithromycin 500mg/250ML NS 500 MG/250 ML BAG IVPB ONE (16:22)
[2018-06-01] MEDS ORDERED: cefTRIAXone 1 gm 1 GM/100 ML BAG IVPB ONE (16:22)
[2018-06-01 16:29] LABS: URINE BILIRUBIN 1+ (NEGATIVE); URINE BLOOD NEGATIVE (NEGATIVE); URINE CLARITY Clear (Clear); URINE COLOR Yellow (YELLOW); URINE GLUCOSE (UA) NORMAL (Normal); URINE LEUKOCYTE ESTERASE NEG Leu/uL (Negative); URINE PROTEIN NEGATIVE (NEGATIVE)
[2018-06-01] MEDS ORDERED: Iodixanol 320 MG/ML 100 ML BOTTLE IV ONE (16:35)
[2018-06-01 16:42] LABS: BARBITURATES, UR NEGATIVE (NEGATIVE); BENZODIAZEPINES, UR NEGATIVE (NEGATIVE); PHENCYCLIDINE, UR NEGATIVE (NEGATIVE)
[2018-06-01 16:55] LABS: OPIATES, UR POSITIVE (NEGATIVE)
[2018-06-01] MEDS ORDERED: Albuterol-Ipratrop 3 mg / 0.5 (3 ml) UD ONE (16:58)
--- NOTE | 2018-06-01 17:48 | CT ---
Date of service: 06/01/2018 CT chest, abdomen, and pelvis with IV contrast Indication: abd pain RO INCARC HERNIA Technique: Contiguous axial images of the chest, abdomen, and pelvis. Coronal and Sagittal reformats generated and reviewed. This CT exam was performed using 1 or more of the following dose reduction techniques: Automated exposure control, adjustment of the MAA and/or kV according to patient size, and/or use of iterative reconstruction technique. Contrast: 100 cc visi opaque 320 IV Radiation dose: Total exam DLP = 1649.82 MGy-cm. Comparison: Chest x-ray performed 06/01/18, noncontrast CT of the abdomen and pelvis performed 11/19/17 Findings: Visualized portions of the inferior thyroid gland appear unremarkable. The mediastinal and hilar vascular structures appear within normal limits. The heart appears within normal limits of size. Coronary artery calcifications. Extensive consolidation of the left lower lobe with air bronchograms evident. Question region of developing necrosis developing in the left lower lobe (series 6, image 23). Small pleural effusion. No pneumothorax. Upper lobe emphysematous changes. Atherosclerotic calcifications and mural plaque of the aorta present. Too small to characterize hepatic hypodensities. Small perihepatic ascites. Indeterminate 13 mm hypodense lesion within the posterior inferior right hepatic lobe (series 6, image 76). Hepatomegaly. Splenomegaly. Contracted gallbladder limits evaluation. The stomach is nondistended and contains debris which limits evaluation. Mid gastric wall thickening. Small bowel wall thickening worrisome for enteritis. The bowel loops appear within normal limits of caliber without evidence of intestinal obstruction. The proximal appendix appears within normal limits of caliber. The distal appendix is dilated measuring up to approximately 13 mm in diameter with adjacent inflammatory changes. There is no definite free air. Fat containing ventral hernia measures approximately 1.9 cm in transverse dimension. Enlarged heterogeneous prostate gland. The urinary bladder appears unremarkable. Small to moderate pelvic free fluid. No acute osseous abnormality is detected. Impression: Extensive consolidation of the left lower lobe with air bronchograms evident. Question region of developing necrosis developing in the left lower lobe. Small pleural effusion. Upper lobe emphysematous changes. The proximal appendix appears within normal limits of caliber. The distal appendix is dilated measuring up to approximately 13 mm in diameter with adjacent inflammatory changes. Correlate clinically for acute appendicitis. Hepatomegaly. Too small to characterize hepatic hypodensities. Small perihepatic ascites. Indeterminate 13 mm hypodense lesion within the posterior inferior right hepatic lobe. Recommend dedicated cross-sectional imaging for further evaluation. Splenomegaly. Marked small bowel wall thickening may be seen in the setting of enteritis. The stomach is nondistended and contains debris which limits evaluation. Mid gastric wall thickening. Recommend further evaluation with direct visualization if indicated. Fat containing ventral hernia measures approximately 1.9 cm in transverse dimension. Enlarged heterogeneous prostate gland. Recommend correlation with PSA. Small to moderate pelvic free fluid. Additional findings as above. Findings discussed with Dr. Malone on 06/01/18 at 5:34 p.m.
[2018-06-01 22:35] VITALS: RESP 20
[2018-06-02] MEDS ORDERED: guaiFENesin DM 200 mg-20 mg/10 ml UD PO STA (01:42)
[2018-06-02] MEDS ORDERED: Pneumococcal 23-Valent Vaccine IM ONE (02:50)
--- NOTE | 2018-06-02 05:05 | CP.PCM.CON ---
<Karthik Hurst - Last Filed: 06/02/18 05:00> History of Present Illness - History of Present Illness History of Present Illness: General Surgery Consult For Dr. Milan This is a 47M with a PMH of IVDA who presented due to "feeling sick" and hemoptysis. He reports subjective feversd at home however he never took his temp. He reports mild chest congestion. He reports a 4 month history of vague generalized abdominal pain. He reports increased abdominal discomfort for the past two weeks. No changes in the last 24-72 hours. He denies any anausea or vomiting, deies any norexia, denies any food intolerance denies any diarrhea melena or hematochezia. He has an umbilical hernia which he said appeared about 4 months ago as well. 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 absent: Anorexia - EENT Eyes: absent: Blurred Vision, Change in Vision Nose/Mouth/Throat: Nasal Congestion. absent: Nasal Discharge - Cardiovascular Cardiovascular: absent: Chest Pain, Dyspnea, Palpitations - Respiratory Respiratory: Cough, Hemoptysis, Chest Congestion. absent: Dyspnea - Gastrointestinal Gastrointestinal: Abdominal Pain. absent: Belching, Bloating, Hematemesis, Hematochezia, Loose Stools, Melena, Nausea, Vomiting - Musculoskeletal Musculoskeletal: Arthralgias, Muscle Weakness, Myalgias Past Patient History - Infectious Disease Hx of Infectious Diseases: None - Past Medical History & Family History Past Medical History?: Yes - Past Social History Smoking Status: Heavy Smoker > 10 Cigarettes Daily - CARDIAC Hx Cardiac Disorders: No - PULMONARY Hx Respiratory Disorders: No - NEUROLOGICAL Hx Neurological Disorder: No - HEENT Hx HEENT Problems: No - RENAL Hx Chronic Kidney Disease: No - HEMATOLOGICAL/ONCOLOGICAL Hx Blood Disorders: Yes Hx Hepatitis C: Yes - INTEGUMENTARY Hx Dermatological Problems: Yes Hx Cellulitis: Yes - MUSCULOSKELETAL/RHEUMATOLOGICAL Hx Falls: Yes - GASTROINTESTINAL Hx Gastrointestinal Disorders: Yes Other/Comment: Hx Umbilical Hernia - GENITOURINARY/GYNECOLOGICAL Hx Genitourinary Disorders: No - PSYCHIATRIC Hx Substance Use: Yes - SURGICAL HISTORY Hx Tonsillectomy: Yes - ANESTHESIA Hx Anesthesia: Yes Hx Anesthesia Reactions: No Hx Malignant Hyperthermia: No Meds Allergies/Adverse Reactions: Allergies Allergy/AdvReac Type Severity Reaction Status Date / Time No Known Allergies Allergy Verified 11/28/17 01:56 - Medications Medications: Current Medications Ceftriaxone Sodium 1 gm/ (Sodium Chloride) 100 mls @ 100 mls/hr IVPB DAILY EUNICE; Protocol Influenza Virus Vaccine (Fluzone Quad [id number]) 60 mcg IM .ONCE ONE Stop: 06/04/18 10:01 Lorazepam (Ativan) 1 mg IVP Q4H PRN PRN Reason: Agitation Pneumococcal Polyvalent Vaccine (Pneumovax 23 Vaccine) 0.5 ml IM .ONCE ONE Stop: 06/04/18 10:01 Physical Exam - Constitutional Appears: Non-toxic, No Acute Distress - Head Exam Head Exam: ATRAUMATIC, NORMOCEPHALIC - Eye Exam Eye Exam: EOMI - ENT Exam ENT Exam: Mucous Membranes Moist - Respiratory Exam Respiratory Exam: NORMAL BREATHING PATTERN - Cardiovascular Exam Cardiovascular Exam: +S1, +S2 - GI/Abdominal Exam GI & Abdominal Exam: Distended, Hernia, Soft, Tenderness. absent: Guarding, Rebound, Rigid Additional comments: No rovsing, no rebound, no obturator sign, no psoas sign - Neurological Exam Neurological exam: Alert, Oriented x3 - Psychiatric Exam Psychiatric exam: Agitated - Skin Skin Exam: Diaphoretic, Intact Results - Vital Signs Recent Vital Signs: Last Vital Signs Temp 97.7 F 06/01/18 22:33 Pulse 76 06/01/18 22:33 Resp 20 06/02/18 02:00 BP 121/72 06/01/18 22:33 Pulse Ox 95 06/01/18 22:33 - Labs Result Diagrams: 06/01/18 15:04 06/01/18 15:04 Labs: Laboratory Results - last 24 hr 06/01/18 06/01/18 06/01/18 15:04 15:04 15:24 WBC 11.9 H RBC 4.65 Hgb 12.5 Hct 37.3 MCV 80.1 D MCH 26.8 L MCHC 33.5 RDW 16.1 H Plt Count 236 MPV 8.9 Neut % (Auto) 84.6 H Lymph % (Auto) 10.1 L [place] % (Auto) 4.3 Eos % (Auto) 0.4 Baso % (Auto) 0.6 Neut # (Auto) 10.1 H Lymph # (Auto) 1.2 [place] # (Auto) 0.5 Eos # (Auto) 0.1 Baso # (Auto) 0.1 pO2 25 L VBG pH 7.43 VBG pCO2 45 VBG HCO3 27.3 VBG Total CO2 31.3 H VBG O2 Sat (Calc) 44.1 VBG Base Excess 4.8 H VBG Potassium 4.3 Glucose 116 H Lactate 2.2 H Sodium 131 L 132.0 Potassium 4.7 Chloride 96 L 98.0 Carbon Dioxide 26 Anion Gap 13 BUN 13 Creatinine 0.7 L Est GFR ( Amer) > 60 Est GFR (Non-Af Amer) > 60 Random Glucose 121 H Lactic Acid Calcium 7.4 L Total Bilirubin 0.7 AST 162 H D ALT 125 H D Alkaline Phosphatase 127 H D Total Protein 6.3 Albumin 2.7 L D Globulin 3.6 Albumin/Globulin Ratio 0.8 L Lipase 17 L Venous Blood Potassium 4.3 Urine Color Urine Clarity Urine pH Ur Specific [place] Urine Protein Urine Glucose (UA) Urine Ketones Urine Blood Urine Nitrate Urine Bilirubin Urine Urobilinogen Ur Leukocyte Esterase Urine WBC (Auto) Urine RBC (Auto) Urine Opiates Screen Urine Methadone Screen Ur Barbiturates Screen Ur Phencyclidine Scrn Ur Amphetamines Screen U Benzodiazepines Scrn U Oth Cocaine Metabols U Cannabinoids Screen 06/01/18 06/01/18 06/01/18 16:18 16:18 19:24 WBC RBC Hgb Hct MCV MCH MCHC RDW Plt Count MPV Neut % (Auto) Lymph % (Auto) [place] % (Auto) Eos % (Auto) Baso % (Auto) Neut # (Auto) Lymph # (Auto) [place] # (Auto) Eos # (Auto) Baso # (Auto) pO2 VBG pH VBG pCO2 VBG HCO3 VBG Total CO2 VBG O2 Sat (Calc) VBG Base Excess VBG Potassium Glucose Lactate Sodium Potassium Chloride Carbon Dioxide Anion Gap BUN Creatinine Est GFR ( Amer) Est GFR (Non-Af Amer) Random Glucose Lactic Acid 1.2 Calcium Total Bilirubin AST ALT Alkaline Phosphatase Total Protein Albumin Globulin Albumin/Globulin Ratio Lipase Venous Blood Potassium Urine Color Yellow Urine Clarity Clear Urine pH 6.0 Ur Specific [place] 1.017 Urine Protein Negative Urine Glucose (UA) Normal Urine Ketones Negative Urine Blood Negative Urine Nitrate Negative Urine Bilirubin 1+ H Urine Urobilinogen 4.0 Ur Leukocyte Esterase Neg Urine WBC (Auto) 1 Urine RBC (Auto) < 1 Urine Opiates Screen Positive H Urine Methadone Screen Negative Ur Barbiturates Screen Negative Ur Phencyclidine Scrn Negative Ur Amphetamines Screen Negative U Benzodiazepines Scrn Negative U Oth Cocaine Metabols Negative U Cannabinoids Screen Positive H - Imaging and Cardiology CT scan - abdomen Status: Image reviewed by me, Report reviewed by me CT scan - pelvis Status: Image reviewed by me, Report reviewed by me Assessment & Plan - Assessment and Plan (Free Text) Assessment: 47 year old male with abdominal pain CT: Questionable necrosis of left lower lobe of lung, normal proximal appendix with dilalated distal appendix with inflamatory changes, hepatosplenomegaly with ascitis, fat containing uymbilical hernia. Plan: F/U diet tolerance Serial abdominal exams Patients history of symptoms and exam do not warrant operation at this time we will re-evaluate if clinical appendicitis become aparent will plan for OR D/W Dr. Kayli Hurst PGY3 <Kole Milan B - Last Filed: 06/05/18 15:33> Results - Vital Signs Recent Vital Signs: Last Vital Signs Temp 98.2 F 06/05/18 08:00 Pulse 89 06/05/18 08:00 Resp 20 06/05/18 08:00 BP 100/60 06/05/18 08:00 Pulse Ox 96 06/05/18 08:00 - Labs Result Diagrams: 06/05/18 07:06 06/05/18 07:06 Labs: Laboratory Results - last 24 hr 06/05/18 06/05/18 06/05/18 07:06 07:06 07:06 WBC 14.5 H RBC 4.13 L Hgb 10.9 L Hct 33.2 L MCV 80.3 MCH 26.4 L MCHC 32.9 L RDW 16.5 H Plt Count 451 H MPV 8.0 Neut % (Auto) 75.6 H Lymph % (Auto) 17.9 L [place] % (Auto) 6.1 Eos % (Auto) 0.2 Baso % (Auto) 0.2 Neut # (Auto) 10.9 H Lymph # (Auto) 2.6 [place] # (Auto) 0.9 H Eos # (Auto) 0.0 Baso # (Auto) 0.0 Sodium 131 L Potassium 4.3 Chloride 99 Carbon Dioxide 26 Anion Gap 10 BUN 14 Creatinine 0.6 L Est GFR ( Amer) > 60 Est GFR (Non-Af Amer) > 60 Random Glucose 84 Calcium 8.0 L Total Bilirubin 1.1 AST 32 ALT 63 Alkaline Phosphatase 84 Total Protein 6.3 Albumin 2.7 L Globulin 3.6 Albumin/Globulin Ratio 0.8 L Vancomycin Trough < 5.0 L Attending/Attestation - Attestation I have personally seen and examined this patient.: Yes I have fully participated in the care of the patient.: Yes I have reviewed all pertinent clinical information: Yes Notes (Text): Pt was seen and examined at bedside Agree with above note and assessment Pt with chronic abdominal Pain and CT scan findings of Possible Appendicitis Abdomen: Soft, ND, Mild tender Pt is passing gas,No BM Labs and Radiology reviewed Ass: Enteritis, No clinical evidence of Appendicitis Plan: IV antibiotics AXR in am Start liquid diet Plan d.w pt in detail Risk and benefit explained in detail.
[2018-06-02] MEDS ORDERED: Albuterol-Ipratrop 3 mg / 0.5 (3 ml) UD INH PRN (06:35)
[2018-06-02 11:11] LABS: BASO # 0.1 K/uL (0.0-0.2); BASO % 0.4 % (0.0-2.0); EOS % 0.1 % (0.0-4.0); LYMPH % 6.6 % (20.0-40.0); MEAN CELL VOLUME 79.7 fL (80.0-94.0); MEAN CORPUSCULAR HEMOGLOBIN 26.2 pg (27.0-31.0); MEAN CORPUSCULAR HGB CONC 32.8 g/dL (33.0-37.0); MEAN PLATELET VOLUME 8.9 fL (7.2-11.7); MONO # 0.7 K/uL (0.0-0.8); MONO % 4.4 % (0.0-10.0); NEUT # 13.8 K/uL (1.8-7.0); NEUT % 88.5 % (50.0-75.0); NRBC % 0.1 % (0.0-2.0); PLATELET COUNT 276 K/uL (130-400); RBC 4.01 Mil/uL (4.40-5.90); RED CELL DISTRIBUTION WIDTH 16.2 % (11.5-14.5); WHITE BLOOD COUNT 15.6 K/uL (4.8-10.8)
[2018-06-02 11:15] LABS: HEMOGLOBIN 10.5 g/dL (12.0-18.0)
[2018-06-02 11:41] LABS: ANISOCYTOSIS SLIGHT; HYPOCHROMIC SLIGHT; LYMPHOCYTE 6 % (20-40); MONOCYTE 5 % (0-10); NEUTROPHIL 89 % (50-75); PLATELET ESTIMATE NORMAL (NORMAL); POLYCHROMIC SLIGHT; TOTAL CELLS COUNTED 100
--- NOTE | 2018-06-02 14:08 | CP.PCM.HP ---
History of Present Illness - History of Present Illness History of Present Illness: 47-YEAR-OLD MALE, PRESENTS TO THE EMERGENCY DEPARTMENT WITH MULT COMPLAINTS. PT CO COUGH, SOB, CHEST BEN X 2 WEEKS. +SMOKE DENIES HO ASTHMA. DENIES CP. HO PRIOR OPIATE ABUSE. ALSO CO EXAC CHRONIC UMB HERNIA X 2 DAYS. NO FEVER, Present on Admission - Present on Admission Any Indicators Present on Admission: No Review of Systems - Review of Systems All systems: reviewed and no additional remarkable complaints except Review of Systems: Cough expectoration abdominal pain. Past Patient History - Infectious Disease Hx of Infectious Diseases: None - Past Medical History & Family History Past Medical History?: Yes - Past Social History Smoking Status: Heavy Smoker > 10 Cigarettes Daily - CARDIAC Hx Cardiac Disorders: No - PULMONARY Hx Respiratory Disorders: No - NEUROLOGICAL Hx Neurological Disorder: No - HEENT Hx HEENT Problems: No - RENAL Hx Chronic Kidney Disease: No - HEMATOLOGICAL/ONCOLOGICAL Hx Blood Disorders: Yes Hx Hepatitis C: Yes - INTEGUMENTARY Hx Dermatological Problems: Yes Hx Cellulitis: Yes - MUSCULOSKELETAL/RHEUMATOLOGICAL Hx Falls: Yes - GASTROINTESTINAL Hx Gastrointestinal Disorders: Yes Other/Comment: Hx Umbilical Hernia - GENITOURINARY/GYNECOLOGICAL Hx Genitourinary Disorders: No - PSYCHIATRIC Hx Substance Use: Yes - SURGICAL HISTORY Hx Tonsillectomy: Yes - ANESTHESIA Hx Anesthesia: Yes Hx Anesthesia Reactions: No Hx Malignant Hyperthermia: No Meds Allergies/Adverse Reactions: Allergies Allergy/AdvReac Type Severity Reaction Status Date / Time No Known Allergies Allergy Verified 11/28/17 01:56 Physical Exam - Head Exam Head Exam: ATRAUMATIC, NORMAL INSPECTION, NORMOCEPHALIC - Eye Exam Eye Exam: EOMI, Normal appearance, PERRL - ENT Exam ENT Exam: Mucous Membranes Moist, Normal Exam - Respiratory Exam Respiratory Exam: Rales, Rhonchi - Cardiovascular Exam Cardiovascular Exam: REGULAR RHYTHM - GI/Abdominal Exam GI & Abdominal Exam: Normal Bowel Sounds, Soft, Tenderness - Rectal Exam Rectal Exam: Fecal Impaction - Extremities Exam Extremities exam: Negative for: calf tenderness, pedal edema - Neurological Exam Neurological exam: Alert, CN II-XII Intact, Normal Gait, Oriented x3, Reflexes Normal Results - Vital Signs Recent Vital Signs: Last Vital Signs Temp 98.0 F 06/02/18 08:00 Pulse 58 L 06/02/18 08:00 Resp 20 06/02/18 08:00 BP 136/76 06/02/18 08:00 Pulse Ox 97 06/02/18 08:00 - Labs Result Diagrams: 06/02/18 10:57 06/01/18 15:04 Labs: Laboratory Results - last 24 hr 06/01/18 06/01/18 06/01/18 15:04 15:04 15:24 WBC 11.9 H RBC 4.65 Hgb 12.5 Hct 37.3 MCV 80.1 D MCH 26.8 L MCHC 33.5 RDW 16.1 H Plt Count 236 MPV 8.9 Neut % (Auto) 84.6 H Lymph % (Auto) 10.1 L [place] % (Auto) 4.3 Eos % (Auto) 0.4 Baso % (Auto) 0.6 Neut # (Auto) 10.1 H Lymph # (Auto) 1.2 [place] # (Auto) 0.5 Eos # (Auto) 0.1 Baso # (Auto) 0.1 Neutrophils % (Manual) Lymphocytes % (Manual) Monocytes % (Manual) Platelet Estimate Polychromasia Hypochromasia (manual) Anisocytosis (manual) pO2 25 L VBG pH 7.43 VBG pCO2 45 VBG HCO3 27.3 VBG Total CO2 31.3 H VBG O2 Sat (Calc) 44.1 VBG Base Excess 4.8 H VBG Potassium 4.3 Glucose 116 H Lactate 2.2 H Sodium 131 L 132.0 Potassium 4.7 Chloride 96 L 98.0 Carbon Dioxide 26 Anion Gap 13 BUN 13 Creatinine 0.7 L Est GFR ( Amer) > 60 Est GFR (Non-Af Amer) > 60 Random Glucose 121 H Lactic Acid Calcium 7.4 L Total Bilirubin 0.7 AST 162 H D ALT 125 H D Alkaline Phosphatase 127 H D Total Protein 6.3 Albumin 2.7 L D Globulin 3.6 Albumin/Globulin Ratio 0.8 L Lipase 17 L Venous Blood Potassium 4.3 Urine Color Urine Clarity Urine pH Ur Specific [place] Urine Protein Urine Glucose (UA) Urine Ketones Urine Blood Urine Nitrate Urine Bilirubin Urine Urobilinogen Ur Leukocyte Esterase Urine WBC (Auto) Urine RBC (Auto) Urine Opiates Screen Urine Methadone Screen Ur Barbiturates Screen Ur Phencyclidine Scrn Ur Amphetamines Screen U Benzodiazepines Scrn U Oth Cocaine Metabols U Cannabinoids Screen 06/01/18 06/01/18 06/01/18 16:18 16:18 19:24 WBC RBC Hgb Hct MCV MCH MCHC RDW Plt Count MPV Neut % (Auto) Lymph % (Auto) [place] % (Auto) Eos % (Auto) Baso % (Auto) Neut # (Auto) Lymph # (Auto) [place] # (Auto) Eos # (Auto) Baso # (Auto) Neutrophils % (Manual) Lymphocytes % (Manual) Monocytes % (Manual) Platelet Estimate Polychromasia Hypochromasia (manual) Anisocytosis (manual) pO2 VBG pH VBG pCO2 VBG HCO3 VBG Total CO2 VBG O2 Sat (Calc) VBG Base Excess VBG Potassium Glucose Lactate Sodium Potassium Chloride Carbon Dioxide Anion Gap BUN Creatinine Est GFR ( Amer) Est GFR (Non-Af Amer) Random Glucose Lactic Acid 1.2 Calcium Total Bilirubin AST ALT Alkaline Phosphatase Total Protein Albumin Globulin Albumin/Globulin Ratio Lipase Venous Blood Potassium Urine Color Yellow Urine Clarity Clear Urine pH 6.0 Ur Specific [place] 1.017 Urine Protein Negative Urine Glucose (UA) Normal Urine Ketones Negative Urine Blood Negative Urine Nitrate Negative Urine Bilirubin 1+ H Urine Urobilinogen 4.0 Ur Leukocyte Esterase Neg Urine WBC (Auto) 1 Urine RBC (Auto) < 1 Urine Opiates Screen Positive H Urine Methadone Screen Negative Ur Barbiturates Screen Negative Ur Phencyclidine Scrn Negative Ur Amphetamines Screen Negative U Benzodiazepines Scrn Negative U Oth Cocaine Metabols Negative U Cannabinoids Screen Positive H 06/02/18 10:57 WBC 15.6 H RBC 4.01 L Hgb 10.5 L D Hct 31.9 L MCV 79.7 L MCH 26.2 L MCHC 32.8 L RDW 16.2 H Plt Count 276 MPV 8.9 Neut % (Auto) 88.5 H Lymph % (Auto) 6.6 L [place] % (Auto) 4.4 Eos % (Auto) 0.1 Baso % (Auto) 0.4 Neut # (Auto) 13.8 H Lymph # (Auto) 1.0 [place] # (Auto) 0.7 Eos # (Auto) 0.0 Baso # (Auto) 0.1 Neutrophils % (Manual) 89 H Lymphocytes % (Manual) 6 L Monocytes % (Manual) 5 Platelet Estimate Normal Polychromasia Slight Hypochromasia (manual) Slight Anisocytosis (manual) Slight pO2 VBG pH VBG pCO2 VBG HCO3 VBG Total CO2 VBG O2 Sat (Calc) VBG Base Excess VBG Potassium Glucose Lactate Sodium Potassium Chloride Carbon Dioxide Anion Gap BUN Creatinine Est GFR ( Amer) Est GFR (Non-Af Amer) Random Glucose Lactic Acid Calcium Total Bilirubin AST ALT Alkaline Phosphatase Total Protein Albumin Globulin Albumin/Globulin Ratio Lipase Venous Blood Potassium Urine Color Urine Clarity Urine pH Ur Specific [place] Urine Protein Urine Glucose (UA) Urine Ketones Urine Blood Urine Nitrate Urine Bilirubin Urine Urobilinogen Ur Leukocyte Esterase Urine WBC (Auto) Urine RBC (Auto) Urine Opiates Screen Urine Methadone Screen Ur Barbiturates Screen Ur Phencyclidine Scrn Ur Amphetamines Screen U Benzodiazepines Scrn U Oth Cocaine Metabols U Cannabinoids Screen Assessment & Plan (1) Pneumonia Status: Acute Comment: CAT scan of the chest shows necrotizing pneumonia. Will get ID evall. Continue IV Rocephin. (2) Umbilical hernia without obstruction or gangrene Status: Acute Comment: umbilical hernia has no signs of inflammation or incarceration will continue supportivapy. The CAT scan laz was evaluated by surgery no acute case for any surgery at this (3) Drug dependence Status: Chronic
[2018-06-02] MEDS: Piperacillin/Tazobact 3.375 GM in Sodium Chloride 100 ML IVPB SCH ×2 (16:00→21:56)
[2018-06-02] MEDS: metroNIDAZOLE IV 500 mg/100 ml 500 MG/100 ML BAG IVPB SCH ×2 (16:26→22:39)
--- NOTE | 2018-06-02 19:29 | CP.PCM.CON ---
History of Present Illness - History of Present Illness History of Present Illness: 47M with a PMH of IVDA who presented due to hemoptysis. withdrawing from heroin PMH: IVDA, hepatitis PSH: Cy st removal, lipoma removal, tonsillectomy ALL: NKDA Social: Tobacco user, IVDA, History of incarceration Review of Systems - Review of Systems All systems: reviewed and no additional remarkable complaints except - Constitutional Constitutional: Chills, Fever, Lethargy, Malaise. absent: Anorexia - EENT Eyes: absent: Blurred Vision, Change in Vision Nose/Mouth/Throat: Nasal Congestion. absent: Nasal Discharge - Cardiovascular Cardiovascular: absent: Chest Pain, Dyspnea, Palpitations - Respiratory Respiratory: Cough, Hemoptysis, Chest Congestion. absent: Dyspnea - Gastrointestinal Gastrointestinal: Abdominal Pain. absent: Belching, Bloating, Hematemesis, Hematochezia, Loose Stools, Melena, Nausea, Vomiting - Musculoskeletal Musculoskeletal: Arthralgias, Muscle Weakness, Myalgias Past Patient History - Infectious Disease Hx of Infectious Diseases: None - Past Medical History & Family History Past Medical History?: Yes - Past Social History Smoking Status: Heavy Smoker > 10 Cigarettes Daily - CARDIAC Hx Cardiac Disorders: No - PULMONARY Hx Respiratory Disorders: No - NEUROLOGICAL Hx Neurological Disorder: No - HEENT Hx HEENT Problems: No - RENAL Hx Chronic Kidney Disease: No - HEMATOLOGICAL/ONCOLOGICAL Hx Blood Disorders: Yes Hx Hepatitis C: Yes - INTEGUMENTARY Hx Dermatological Problems: Yes Hx Cellulitis: Yes - MUSCULOSKELETAL/RHEUMATOLOGICAL Hx Falls: Yes - GASTROINTESTINAL Hx Gastrointestinal Disorders: Yes Other/Comment: Hx Umbilical Hernia - GENITOURINARY/GYNECOLOGICAL Hx Genitourinary Disorders: No - PSYCHIATRIC Hx Substance Use: Yes - SURGICAL HISTORY Hx Tonsillectomy: Yes - ANESTHESIA Hx Anesthesia: Yes Hx Anesthesia Reactions: No Hx Malignant Hyperthermia: No Meds Allergies/Adverse Reactions: Allergies Allergy/AdvReac Type Severity Reaction Status Date / Time No Known Allergies Allergy Verified 11/28/17 01:56 - Medications Medications: Current Medications Albuterol/Ipratropium (Duoneb 3 Mg/0.5 Mg (3 Ml) Ud) 3 ml INH RQ4 PRN PRN Reason: Wheezing Guaifenesin/Dextromethorphan (Robitussin Dm) 10 ml PO Q4H PRN PRN Reason: Cough and congestion Heparin Sodium (Porcine) (Heparin) 5,000 units SC Q12 EUNICE Last Admin: 06/02/18 09:58 Dose: Not Given Metronidazole (Flagyl) 500 mg in 100 mls @ 100 mls/hr IVPB Q8H EUNICE; Protocol Last Admin: 06/02/18 16:26 Dose: 100 mls/hr Piperacillin Sod/Tazobactam (Sod 3.375 gm/ Sodium Chloride) 100 mls @ 200 mls/hr IVPB Q6H EUNICE; Protocol Stop: 06/05/18 15:01 Last Admin: 06/02/18 16:00 Dose: 200 mls/hr Influenza Virus Vaccine (Fluzone Quad [id number]) 60 mcg IM .ONCE ONE Stop: 06/04/18 10:01 Lorazepam (Ativan) 1 mg IVP Q4H PRN PRN Reason: Agitation Last Admin: 06/02/18 16:25 Dose: 1 mg Pneumococcal Polyvalent Vaccine (Pneumovax 23 Vaccine) 0.5 ml IM .ONCE ONE Stop: 06/04/18 10:01 Physical Exam - Constitutional Appears: Chronically Ill - Head Exam Head Exam: ATRAUMATIC - Eye Exam Eye Exam: absent: Scleral icterus - ENT Exam ENT Exam: Mucous Membranes Dry - Neck Exam Neck exam: Negative for: Lymphadenopathy - Respiratory Exam Respiratory Exam: Decreased Breath Sounds - Cardiovascular Exam Cardiovascular Exam: REGULAR RHYTHM - GI/Abdominal Exam GI & Abdominal Exam: Diminished Bowel Sounds - Rectal Exam Rectal Exam: Deferred - Exam Exam: NORMAL INSPECTION - Extremities Exam Extremities exam: Negative for: pedal edema - Back Exam Back exam: absent: CVA tenderness (L), CVA tenderness (R) - Neurological Exam Neurological exam: Alert, CN II-XII Intact - Psychiatric Exam Psychiatric exam: Normal Mood - Skin Skin Exam: Dry Results - Vital Signs Recent Vital Signs: Last Vital Signs Temp 97.4 F L 06/02/18 15:15 Pulse 68 06/02/18 15:15 Resp 20 06/02/18 15:15 BP 115/65 06/02/18 15:15 Pulse Ox 99 06/02/18 15:15 - Labs Result Diagrams: 06/02/18 10:57 06/01/18 15:04 Labs: Laboratory Results - last 24 hr 06/01/18 06/02/18 19:24 10:57 WBC 15.6 H RBC 4.01 L Hgb 10.5 L D Hct 31.9 L MCV 79.7 L MCH 26.2 L MCHC 32.8 L RDW 16.2 H Plt Count 276 MPV 8.9 Neut % (Auto) 88.5 H Lymph % (Auto) 6.6 L [place] % (Auto) 4.4 Eos % (Auto) 0.1 Baso % (Auto) 0.4 Neut # (Auto) 13.8 H Lymph # (Auto) 1.0 [place] # (Auto) 0.7 Eos # (Auto) 0.0 Baso # (Auto) 0.1 Neutrophils % (Manual) 89 H Lymphocytes % (Manual) 6 L Monocytes % (Manual) 5 Platelet Estimate Normal Polychromasia Slight Hypochromasia (manual) Slight Anisocytosis (manual) Slight Lactic Acid 1.2 Assessment & Plan (1) Opiate dependence Status: Acute (2) Pneumonia Status: Acute (3) Heroin abuse Status: Acute (4) IVDU (intravenous drug user) Status: Acute (5) Opioid abuse Status: Acute (6) Opioid abuse with intoxication Status: Acute (7) Substance abuse Status: Acute - Assessment and Plan (Free Text) Assessment: Pneumonia r/o bacteremia r/o sepsis ivdu hx hep c ? screening IV antibiotics consider pulm eval
--- NOTE | 2018-06-02 19:53 | CARD ---
APPROVED REPORT Date of service: 06/01/2018 EKG Measurement Heart [id number] <Conclusion> Normal sinus rhythm Incomplete right bundle branch block Borderline ECG
[2018-06-02] MEDS: Vancomycin 1 gm/NS 200 ml 1 GM/200 ML BAG IVPB SCH (20:20)
[2018-06-03] MEDS: Piperacillin/Tazobact 3.375 GM in Sodium Chloride 100 ML IVPB SCH ×5 (02:55→21:38)
[2018-06-03] MEDS: metroNIDAZOLE IV 500 mg/100 ml 500 MG/100 ML BAG IVPB SCH ×3 (08:23→23:30)
--- NOTE | 2018-06-03 08:40 | CP.PCM.PN ---
<Margaret Bob - Last Filed: 06/03/18 12:18> Subjective - Date & Time of Evaluation Date of Evaluation: 06/03/18 Time of Evaluation: 06:30 - Subjective Subjective: General surgery consult note for Dr. Milan Pt seen and examined this AM. Patient states that his pain is improved, he is tolerating his diet. Still has some discomfort at his umbilical hernia site but no nausea, vomiting, or fevers Objective - Vital Signs/Intake and Output Vital Signs (last 24 hours): Temp Pulse Resp BP Pulse Ox 97.4 F L 68 20 115/65 99 06/02/18 15:15 06/02/18 15:15 06/02/18 15:15 06/02/18 15:15 06/02/18 15:15 Intake and Output: 06/03/18 06/03/18 06:59 18:59 Intake Total 1000 100 Balance 1000 100 - Medications Medications: Current Medications Albuterol/Ipratropium (Duoneb 3 Mg/0.5 Mg (3 Ml) Ud) 3 ml INH RQ4 PRN PRN Reason: Wheezing Guaifenesin/Dextromethorphan (Robitussin Dm) 10 ml PO Q4H PRN PRN Reason: Cough and congestion Heparin Sodium (Porcine) (Heparin) 5,000 units SC Q12 [facility] Last Admin: 06/02/18 21:37 Dose: Not Given Metronidazole (Flagyl) 500 mg in 100 mls @ 100 mls/hr IVPB Q8H [facility]; Protocol Last Admin: 06/03/18 08:23 Dose: 100 mls/hr Piperacillin Sod/Tazobactam (Sod 3.375 gm/ Sodium Chloride) 100 mls @ 200 mls/hr IVPB Q6H [facility]; Protocol Stop: 06/05/18 15:01 Last Admin: 06/03/18 02:55 Dose: 200 mls/hr Vancomycin/Sodium Chloride (Vancomycin 1 Gm/Ns 200 Ml) 1 gm in 200 mls @ 133 mls/hr IVPB Q12H [facility]; Protocol Stop: 06/07/18 21:01 Last Admin: 06/02/18 20:20 Dose: 133 mls/hr Influenza Virus Vaccine (Fluzone Quad [id number]) 60 mcg IM .ONCE ONE Stop: 06/04/18 10:01 Lorazepam (Ativan) 1 mg IVP Q4H PRN PRN Reason: Agitation Last Admin: 06/03/18 08:23 Dose: 1 mg Pneumococcal Polyvalent Vaccine (Pneumovax 23 Vaccine) 0.5 ml IM .ONCE ONE Stop: 06/04/18 10:01 - Labs Labs: 06/02/18 10:57 06/01/18 15:04 - Constitutional Appears: Well, Non-toxic, No Acute Distress - Head Exam Head Exam: ATRAUMATIC, NORMOCEPHALIC - Eye Exam Eye Exam: Normal appearance. absent: Conjunctival injection, Scleral icterus - ENT Exam ENT Exam: Mucous Membranes Moist, Normal Oropharynx - Respiratory Exam Respiratory Exam: NORMAL BREATHING PATTERN. absent: Accessory Muscle Use, Respiratory Distress - Cardiovascular Exam Cardiovascular Exam: RRR - GI/Abdominal Exam GI & Abdominal Exam: Distended, Soft, Tenderness (mild pain at umbilical hernia site), Hernia (reducible umbilical hernia with no skin changes). absent: Guarding, Rebound - Extremities Exam Extremities Exam: absent: Calf Tenderness, Pedal Edema, Tenderness - Neurological Exam Neurological Exam: Alert, Awake, Oriented x3 - Psychiatric Exam Psychiatric exam: Normal Affect, Normal Mood - Skin Skin Exam: Dry, Normal Color, Warm Assessment and Plan - Assessment and Plan (Free Text) Assessment: 47M with umbilical hernia and chronic abdominal pain Plan: No surgical intervention planned for this patient at this time--patient's pain is likely related to chronic medical issues and chronic, non-incarcerated umbilical hernia patient can follow up in Dr. Milan's office for follow up for outpatient umbilical hernia repair Recommend close follow up with primary physician and GI for Hep C treatment Medical management per primary Discussed with Dr. Kayli Bob, PGY2 <Kole Milan - Last Filed: 06/05/18 15:35> Objective - Vital Signs/Intake and Output Vital Signs (last 24 hours): Temp Pulse Resp BP Pulse Ox 98.2 F 89 20 100/60 96 06/05/18 08:00 06/05/18 08:00 06/05/18 08:00 06/05/18 08:00 06/05/18 08:00 Intake and Output: 06/05/18 06/05/18 06:59 18:59 Intake Total 400 400 Balance 400 400 - Labs Labs: 06/05/18 07:06 06/05/18 07:06 Attending/Attestation - Attestation I have personally seen and examined this patient.: Yes I have fully participated in the care of the patient.: Yes I have reviewed all pertinent clinical information, including history, physical exam and plan: Yes Notes (Text): Pt was seen and examined at bedside Agree with above note and assessment Pt is improving clinically Tolerating diet and Have normal BM C.w current mx No general surgical intervention required at present f.u as out pt for umbilical hernia Plan d.w pt in detail Risk and benefit explained in detail.
--- NOTE | 2018-06-03 09:34 | PCM.PSYCH ---
Initial Psychiatric Evaluation - Initial Psychiatric Evaluation Type of Admission: Voluntary Legal Status: Capacity Chief Complaint (in patient's own words): I am withdrawing.' History of Present Illness and Precipitating Events: Pt is a 47 year old male who is single with 2 children that are 27 and 17 years old. He is currently not employed and he [facility] [place]. Pt with a history of opiate abuse came to [facility] with multiple complaints including cough, SOB, and chest congestion for 2 weeks. Today pt was consulted by psychiatry. Pt states he uses 3 bags of heroin a day by injection. He began using heroin at 10 years old. He continued using heroin regularly since then until he was incarcerated. He was on a methadone maintenance in the past though he cannot recall when and does not want to go on maintenance now. He has undergone detoxification 10 times and been to 10 rehabilitation centers in the past. He has also been hospitalized for a psychiatric condition 2 times in the past but cannot recall the last time. Pt denies use of cocaine, alcohol, or marijuana? though cannabinoids were found in his urine. He smokes 1 pack of cigarettes a day. He denies SI, HI or hallucinations. Pt has withdrawal symptoms including sweating, trouble sleeping, body aches and anxiety. Past medical history: Hepatitis C Allergies: Denies Surgical history: Tonsillectomy, Hernia Legal history: Incarceration for 4 months recently Psychiatric history: Denies Family psychiatric history: Denies Current Medications: Active Medications Generic Name Dose Route Start Last Admin Trade Name Freq PRN Reason Stop Dose Admin Albuterol/Ipratropium 3 ml 06/02/18 06:35 Duoneb 3 Mg/0.5 Mg (3 Ml) Ud INH RQ4 PRN Wheezing Guaifenesin/Dextromethorphan 10 ml 06/02/18 06:33 Robitussin Dm PO Q4H PRN Cough and congestion Heparin Sodium (Porcine) 5,000 units 06/02/18 10:00 06/02/18 21:37 Heparin SC Not Given Q12 [facility] Metronidazole 500 mg in 100 mls @ 100 mls/hr 06/02/18 15:30 06/03/18 08:23 Flagyl IVPB 100 mls/hr Q8H [facility] Administration Protocol Piperacillin Sod/Tazobactam 100 mls @ 200 mls/hr 06/02/18 15:00 06/03/18 02:55 Sod 3.375 gm/ Sodium Chloride IVPB 06/05/18 15:01 200 mls/hr Q6H [facility] Administration Protocol Vancomycin/Sodium Chloride 1 gm in 200 mls @ 133 mls/hr 06/02/18 20:00 06/02/18 20:20 Vancomycin 1 Gm/Ns 200 Ml IVPB 06/07/18 21:01 133 mls/hr Q12H [facility] Administration Protocol Influenza Virus Vaccine 60 mcg 06/04/18 10:00 Fluzone Quad [id number] IM 06/04/18 10:01 .ONCE ONE Lorazepam 1 mg 06/01/18 23:27 06/03/18 08:23 Ativan IVP 1 mg Q4H PRN Administration Agitation Methadone HCl 25 mg 06/03/18 09:33 Methadone PO 06/03/18 09:34 STAT STA Pneumococcal Polyvalent Vaccine 0.5 ml 06/04/18 10:00 Pneumovax 23 Vaccine IM 06/04/18 10:01 .ONCE ONE Past Psychiatric History - Past Psychiatric History Previous Treatment History: None Pertinent Medical Hx (Current Medical&Sleep Prob, Allergies): Allergies Allergy/AdvReac Type Severity Reaction Status Date / Time No Known Allergies Allergy Verified 11/28/17 01:56 No Known Home Med 06/01/18 Review of Systems - Review of Systems All systems: reviewed and no additional remarkable complaints except - Psychiatric Psychiatric: Anxiety, Irritability. absent: Suicidal Ideation Mental Status Examination - Personal Presentation Personal Presentation: Looks stated age - Affect Affect: Constricted - Motor Activity Motor Activity: Calm - Reliability in Providing Information Reliability in Providing Information: Fair - Speech Speech: Organized - Mood Mood: Anxious - Formal Thought Process Formal Thought Process: No Impairment - Obsessions/Compulsions Obsessions: No Compulsions: No - Cognitive Functions Orientation: Person, Place, Situation, Time Sensorium: Alert Attention/Concentration: Attentive Abstract Thinking: [place] Estimate of Intelligence: Below average Judgement: Imparied, as evidence by: Poor judgement, Intact, as evidence by: Insight regarding need for hospitalization - Risk Risk: Withdrawal, Diminished functioning - Limitations Limitations: Living alone DSM 5 DX - DSM 5 DSM 5 Diagnosis: Opioid use disorder severe Opioid withdrawal - Recommended/Plan of Treatment Treatment Recommendations and Plan of Treatment: Opioid use disorder severe CBT Psychoeducation Supportive therapy, individual therapy Use SC for abstinence Opioid withdrawal CBT Psychoeducation Supportive therapy, individual therapy Clonidine when necessary Methadone taper - Smoking Cessation Smoking Cessation Initiated: Yes
[2018-06-03] MEDS: Vancomycin 1 gm/NS 200 ml 1 GM/200 ML BAG IVPB SCH ×2 (10:09→20:56)
[2018-06-03 11:54] LABS: BASO % 0.3 % (0.0-2.0); EOS % 0.1 % (0.0-4.0); LYMPH # 1.7 K/uL (1.0-4.3); LYMPH % 11.8 % (20.0-40.0); MEAN CELL VOLUME 79.6 fL (80.0-94.0); MEAN CORPUSCULAR HEMOGLOBIN 27.1 pg (27.0-31.0); MEAN PLATELET VOLUME 8.7 fL (7.2-11.7); MONO # 0.9 K/uL (0.0-0.8); NEUT % 81.8 % (50.0-75.0); NRBC % 0.1 % (0.0-2.0); RBC 4.06 Mil/uL (4.40-5.90); RED CELL DISTRIBUTION WIDTH 16.2 % (11.5-14.5); WHITE BLOOD COUNT 14.7 K/uL (4.8-10.8)
[2018-06-03 12:12] LABS: ALB/GLOB RATIO 0.7 (1.0-2.1); ALBUMIN 2.7 g/dL (3.5-5.0); ALT/SGPT 102 U/L (21-72); AST/SGOT 64 U/L (17-59); BLOOD UREA NITROGEN 13 mg/dL (9-20); CALCIUM 7.8 mg/dl (8.6-10.4); GFR NON-AFRICAN AMERICAN > 60
[2018-06-03 12:57] LABS: HEPATITIS B SURFACE AG Negative (NEGATIVE)
--- NOTE | 2018-06-03 14:19 | CP.PCM.PN ---
Subjective - Date & Time of Evaluation Date of Evaluation: 06/03/18 Time of Evaluation: 14:16 - Subjective Subjective: CHIEF COMPLAINTS TODAY : Complaining of pain in the umbilical and right lower quadrant no nausea or vomiting mild cough. ROS. HEENT : N. Resp : No wheezing ,pleuritic CP ,or hemoptysis Cardio : No anginal CP, PND, orthopnea, palpitation GI : No , n/v ,diarrhea or GI bleeding . [facility]NA[facility] : No headache, vertigo, focal deficit. Musculoskel : No joint swelling , Derm : No rash Psych : Normal affect. Ext : No swelling ,calf pain PE. Pt. is alert awake in no distress. V.S As noted in the chart Head ,ear nose,throat and eyes : Normal. Neck : Supple with normal carotids. Lungs: Clear air entry. Right basal crepitation Heart : S1 & S2 normal with S4. No murmur. Abd : Softtender in the umbilical and right lower quadrant. With normal bowel sounds. Neuro : Moves all ext. with no localized deficit. Ext : No edema with intact pulses.Non tender calves Derm : No rashes or decubitus ulcer. LABS/RADIOLOGY: ASSESSMENT/PLAN : Continue IV antibiotics Surgical team on board in view of swollen appendix Objective - Vital Signs/Intake and Output Vital Signs (last 24 hours): Temp Pulse Resp BP Pulse Ox 97.3 F L 81 20 132/74 95 06/03/18 07:00 06/03/18 07:00 06/03/18 07:00 06/03/18 07:00 06/03/18 07:00 Intake and Output: 06/03/18 06/03/18 11:59 23:59 Intake Total 100 Balance 100 - Medications Medications: Current Medications Albuterol/Ipratropium (Duoneb 3 Mg/0.5 Mg (3 Ml) Ud) 3 ml INH RQ4 PRN PRN Reason: Wheezing Guaifenesin/Dextromethorphan (Robitussin Dm) 10 ml PO Q4H PRN PRN Reason: Cough and congestion Heparin Sodium (Porcine) (Heparin) 5,000 units SC Q12 [facility] Last Admin: 06/03/18 10:11 Dose: Not Given Metronidazole (Flagyl) 500 mg in 100 mls @ 100 mls/hr IVPB Q8H [facility]; Protocol Last Admin: 06/03/18 08:23 Dose: 100 mls/hr Piperacillin Sod/Tazobactam (Sod 3.375 gm/ Sodium Chloride) 100 mls @ 200 mls/hr IVPB Q6H [facility]; Protocol Stop: 06/05/18 15:01 Last Admin: 06/03/18 12:11 Dose: 200 mls/hr Vancomycin/Sodium Chloride (Vancomycin 1 Gm/Ns 200 Ml) 1 gm in 200 mls @ 133 mls/hr IVPB Q12H [facility]; Protocol Stop: 06/07/18 21:01 Last Admin: 06/03/18 10:09 Dose: 133 mls/hr Influenza Virus Vaccine (Fluzone Quad [id number]) 60 mcg IM .ONCE ONE Stop: 06/04/18 10:01 Lorazepam (Ativan) 1 mg IVP Q4H PRN PRN Reason: Agitation Last Admin: 06/03/18 08:23 Dose: 1 mg Pneumococcal Polyvalent Vaccine (Pneumovax 23 Vaccine) 0.5 ml IM .ONCE ONE Stop: 06/04/18 10:01 - Labs Labs: 06/03/18 11:38 06/03/18 11:38 Assessment and Plan (1) Pneumonia Status: Acute (2) Umbilical hernia without obstruction or gangrene Status: Acute (3) Drug dependence Status: Chronic
[2018-06-03] MEDS: guaiFENesin DM 200 mg-20 mg/10 ml UD PO PRN ×2 (14:50→20:57)
--- NOTE | 2018-06-03 20:01 | CP.PCM.PN ---
Subjective - Date & Time of Evaluation Date of Evaluation: 06/03/18 Time of Evaluation: 08:00 - Subjective Subjective: cultures neg thus far refusing IV antibiotics Objective - Vital Signs/Intake and Output Vital Signs (last 24 hours): Temp Pulse Resp BP Pulse Ox 98 F 79 20 117/73 96 06/03/18 16:00 06/03/18 16:00 06/03/18 16:00 06/03/18 16:00 06/03/18 16:00 Intake and Output: 06/03/18 06/04/18 18:59 06:59 Intake Total 1200 Balance 1200 - Medications Medications: Current Medications Albuterol/Ipratropium (Duoneb 3 Mg/0.5 Mg (3 Ml) Ud) 3 ml INH RQ4 PRN PRN Reason: Wheezing Guaifenesin/Dextromethorphan (Robitussin Dm) 10 ml PO Q4H PRN PRN Reason: Cough and congestion Last Admin: 06/03/18 14:50 Dose: 10 ml Heparin Sodium (Porcine) (Heparin) 5,000 units SC Q12 [facility] Last Admin: 06/03/18 10:11 Dose: Not Given Metronidazole (Flagyl) 500 mg in 100 mls @ 100 mls/hr IVPB Q8H [facility]; Protocol Last Admin: 06/03/18 14:44 Dose: 100 mls/hr Piperacillin Sod/Tazobactam (Sod 3.375 gm/ Sodium Chloride) 100 mls @ 200 mls/hr IVPB Q6H [facility]; Protocol Stop: 06/05/18 15:01 Last Admin: 06/03/18 16:00 Dose: Not Given Vancomycin/Sodium Chloride (Vancomycin 1 Gm/Ns 200 Ml) 1 gm in 200 mls @ 133 mls/hr IVPB Q12H [facility]; Protocol Stop: 06/07/18 21:01 Last Admin: 06/03/18 10:09 Dose: 133 mls/hr Influenza Virus Vaccine (Fluzone Quad [id number]) 60 mcg IM .ONCE ONE Stop: 06/04/18 10:01 Lorazepam (Ativan) 1 mg IVP Q4H PRN PRN Reason: Agitation Last Admin: 06/03/18 08:23 Dose: 1 mg Pneumococcal Polyvalent Vaccine (Pneumovax 23 Vaccine) 0.5 ml IM .ONCE ONE Stop: 06/04/18 10:01 - Labs Labs: 06/03/18 11:38 06/03/18 11:38 - Constitutional Appears: Non-toxic, Chronically Ill - Head Exam Head Exam: NORMOCEPHALIC - Eye Exam Pupil Exam: absent: NORMAL ACCOMODATION - ENT Exam ENT Exam: Mucous Membranes Dry - Neck Exam Neck Exam: absent: Lymphadenopathy - Respiratory Exam Respiratory Exam: Decreased Breath Sounds - Cardiovascular Exam Cardiovascular Exam: REGULAR RHYTHM - GI/Abdominal Exam GI & Abdominal Exam: Distended, Soft - Rectal Exam Rectal Exam: Deferred - Exam Exam: NORMAL INSPECTION Assessment and Plan (1) Opiate dependence Status: Acute (2) Pneumonia Status: Acute (3) Heroin abuse Status: Acute (4) IVDU (intravenous drug user) Status: Acute (5) Opioid abuse Status: Acute (6) Opioid abuse with intoxication Status: Acute (7) Substance abuse Status: Acute - Assessment and Plan (Free Text) Assessment: cont iv rx psych eval ongoing
[2018-06-04] MEDS: Piperacillin/Tazobact 3.375 GM in Sodium Chloride 100 ML IVPB SCH ×5 (04:00→21:37)
[2018-06-04] MEDS: metroNIDAZOLE IV 500 mg/100 ml 500 MG/100 ML BAG IVPB SCH ×4 (08:00→14:56)
[2018-06-04] MEDS: Vancomycin 1 gm/NS 200 ml 1 GM/200 ML BAG IVPB SCH ×3 (08:39→20:32)
[2018-06-04] MEDS ORDERED: Influenza Vaccine 60 MCG/0.5 ML SYR (3 yr & up) IM ONE (10:00)
[2018-06-04] MEDS ORDERED: Pneumococcal 23-Valent Vaccine IM ONE (10:00)
--- NOTE | 2018-06-04 13:59 | CP.PCM.PN ---
Subjective - Date & Time of Evaluation Date of Evaluation: 06/04/18 Time of Evaluation: 13:58 - Subjective Subjective: IMPROVING AFEBRILE DISCONTINUING IV AB COUNSELLED PSYCH EVAL CXR Objective - Vital Signs/Intake and Output Vital Signs (last 24 hours): Temp Pulse Resp BP Pulse Ox 98.2 F 77 20 117/67 97 06/04/18 07:54 06/04/18 07:54 06/04/18 07:54 06/04/18 07:54 06/04/18 07:54 - Medications Medications: Current Medications Albuterol/Ipratropium (Duoneb 3 Mg/0.5 Mg (3 Ml) Ud) 3 ml INH RQ4 PRN PRN Reason: Wheezing Clonidine HCl (Catapres) 0.1 mg PO Q8 PRN PRN Reason: COWS Score More or Equal to 5 Gabapentin (Neurontin) 100 mg PO TID [facility] Last Admin: 06/04/18 09:00 Dose: 100 mg Guaifenesin/Dextromethorphan (Robitussin Dm) 10 ml PO Q4H PRN PRN Reason: Cough and congestion Last Admin: 06/03/18 20:57 Dose: 10 ml Heparin Sodium (Porcine) (Heparin) 5,000 units SC Q12 [facility] Last Admin: 06/04/18 09:07 Dose: Not Given Metronidazole (Flagyl) 500 mg in 100 mls @ 100 mls/hr IVPB Q8H [facility]; Protocol Last Admin: 06/04/18 10:24 Dose: Not Given Piperacillin Sod/Tazobactam (Sod 3.375 gm/ Sodium Chloride) 100 mls @ 200 mls/hr IVPB Q6H [facility]; Protocol Stop: 06/05/18 15:01 Last Admin: 06/04/18 10:26 Dose: Not Given Vancomycin/Sodium Chloride (Vancomycin 1 Gm/Ns 200 Ml) 1 gm in 200 mls @ 133 mls/hr IVPB Q12H [facility]; Protocol Stop: 06/07/18 21:01 Last Admin: 06/04/18 10:26 Dose: Not Given Loperamide HCl (Imodium) 2 mg PO Q8 PRN PRN Reason: Diarrhea Lorazepam (Ativan) 1 mg IVP Q4H PRN PRN Reason: Agitation Last Admin: 06/03/18 20:57 Dose: 1 mg Methadone HCl (Methadone) 15 mg PO DAILY [facility]; Taper Stop: 06/07/18 09:59 Last Admin: 06/04/18 09:00 Dose: 15 mg Ondansetron HCl (Zofran Tab) 4 mg PO Q8 PRN PRN Reason: Nausea/Vomiting - Labs Labs: 06/03/18 11:38 06/03/18 11:38 Assessment and Plan (1) Pneumonia Status: Acute (2) Umbilical hernia without obstruction or gangrene Status: Acute (3) Drug dependence Status: Chronic
--- NOTE | 2018-06-04 14:39 | RAD ---
Date of service: 06/04/2018 PROCEDURE: CHEST RADIOGRAPH, 1 VIEW HISTORY: F/U PNEUMONIA COMPARISON: CT chest from 06/01/2018. FINDINGS: LUNGS: The lungs are well inflated. The right lung is clear. There is interval mild improved aeration in the left lung. PLEURA: Small left pleural effusion. No right pleural effusion or pneumothorax. CARDIOVASCULAR: The heart is normal in size. No aortic atherosclerotic calcifications present. OSSEOUS STRUCTURES: Within normal limits for the patient's age. VISUALIZED UPPER ABDOMEN: Normal. OTHER FINDINGS: None. IMPRESSION: Interval mild improved aeration in the left lung reflecting improving consolidation. Small left pleural effusion.
--- NOTE | 2018-06-04 20:18 | CP.PCM.PN ---
Subjective - Date & Time of Evaluation Date of Evaluation: 06/04/18 Time of Evaluation: 07:00 - Subjective Subjective: refusing iv rx Objective - Vital Signs/Intake and Output Vital Signs (last 24 hours): Temp Pulse Resp BP Pulse Ox 98.2 F 77 20 117/67 97 06/04/18 07:54 06/04/18 07:54 06/04/18 07:54 06/04/18 07:54 06/04/18 07:54 - Medications Medications: Current Medications Albuterol/Ipratropium (Duoneb 3 Mg/0.5 Mg (3 Ml) Ud) 3 ml INH RQ4 PRN PRN Reason: Wheezing Clonidine HCl (Catapres) 0.1 mg PO Q8 PRN PRN Reason: COWS Score More or Equal to 5 Gabapentin (Neurontin) 100 mg PO TID [facility] Last Admin: 06/04/18 18:23 Dose: 100 mg Guaifenesin/Dextromethorphan (Robitussin Dm) 10 ml PO Q4H PRN PRN Reason: Cough and congestion Last Admin: 06/03/18 20:57 Dose: 10 ml Heparin Sodium (Porcine) (Heparin) 5,000 units SC Q12 [facility] Last Admin: 06/04/18 09:07 Dose: Not Given Metronidazole (Flagyl) 500 mg in 100 mls @ 100 mls/hr IVPB Q8H [facility]; Protocol Last Admin: 06/04/18 14:56 Dose: Not Given Piperacillin Sod/Tazobactam (Sod 3.375 gm/ Sodium Chloride) 100 mls @ 200 mls/hr IVPB Q6H [facility]; Protocol Stop: 06/05/18 15:01 Last Admin: 06/04/18 14:56 Dose: Not Given Vancomycin/Sodium Chloride (Vancomycin 1 Gm/Ns 200 Ml) 1 gm in 200 mls @ 133 mls/hr IVPB Q12H [facility]; Protocol Stop: 06/07/18 21:01 Last Admin: 06/04/18 10:26 Dose: Not Given Loperamide HCl (Imodium) 2 mg PO Q8 PRN PRN Reason: Diarrhea Lorazepam (Ativan) 1 mg IVP Q4H PRN PRN Reason: Agitation Last Admin: 06/03/18 20:57 Dose: 1 mg Methadone HCl (Methadone) 15 mg PO DAILY [facility]; Taper Stop: 06/07/18 09:59 Last Admin: 06/04/18 09:00 Dose: 15 mg Ondansetron HCl (Zofran Tab) 4 mg PO Q8 PRN PRN Reason: Nausea/Vomiting - Labs Labs: 06/03/18 11:38 06/03/18 11:38 - Constitutional Appears: Non-toxic, Chronically Ill - Head Exam Head Exam: NORMOCEPHALIC - Eye Exam Eye Exam: absent: Scleral icterus - ENT Exam ENT Exam: Mucous Membranes Dry - Neck Exam Neck Exam: absent: Lymphadenopathy - Respiratory Exam Respiratory Exam: Decreased Breath Sounds - Cardiovascular Exam Cardiovascular Exam: REGULAR RHYTHM - GI/Abdominal Exam GI & Abdominal Exam: Distended Assessment and Plan (1) Opiate dependence Status: Acute (2) Pneumonia Status: Acute (3) Heroin abuse Status: Acute (4) IVDU (intravenous drug user) Status: Acute (5) Opioid abuse Status: Acute (6) Opioid abuse with intoxication Status: Acute (7) Substance abuse Status: Acute
[2018-06-05] MEDS: metroNIDAZOLE IV 500 mg/100 ml 500 MG/100 ML BAG IVPB SCH ×2 (00:20→07:54)
[2018-06-05] MEDS: Piperacillin/Tazobact 3.375 GM in Sodium Chloride 100 ML IVPB SCH ×2 (02:00→08:28)
[2018-06-05 07:21] LABS: BASO % 0.2 % (0.0-2.0); EOS % 0.2 % (0.0-4.0); HEMOGLOBIN 10.9 g/dL (12.0-18.0); LYMPH # 2.6 K/uL (1.0-4.3); LYMPH % 17.9 % (20.0-40.0); MEAN CELL VOLUME 80.3 fL (80.0-94.0); MEAN CORPUSCULAR HEMOGLOBIN 26.4 pg (27.0-31.0); MEAN CORPUSCULAR HGB CONC 32.9 g/dL (33.0-37.0); MONO # 0.9 K/uL (0.0-0.8); MONO % 6.1 % (0.0-10.0); NEUT # 10.9 K/uL (1.8-7.0); NEUT % 75.6 % (50.0-75.0); RBC 4.13 Mil/uL (4.40-5.90); RED CELL DISTRIBUTION WIDTH 16.5 % (11.5-14.5); WHITE BLOOD COUNT 14.5 K/uL (4.8-10.8)
[2018-06-05] MEDS: Vancomycin 1 gm/NS 200 ml 1 GM/200 ML BAG IVPB SCH (07:54)
[2018-06-05 07:56] LABS: ALB/GLOB RATIO 0.8 (1.0-2.1); ALBUMIN 2.7 g/dL (3.5-5.0)
[2018-06-05 08:01] VITALS: BP 100/60; PULSE 89; TEMP 98.2; O2SAT 96
[2018-06-05 08:05] LABS: BLOOD UREA NITROGEN 14 mg/dL (9-20)
[2018-06-05 08:37] LABS: ALT/SGPT 63 U/L (21-72); AST/SGOT 32 U/L (17-59); GFR NON-AFRICAN AMERICAN > 60
--- NOTE | 2018-06-05 14:54 | CP.PCM.DIS ---
Provider - Provider Date of Admission: 06/01/18 19:43 Attending physician: Halina Camacho MD Time Spent in preparation of Discharge (in minutes): 30 Diagnosis - Discharge Diagnosis (1) Pneumonia Status: Acute (2) Umbilical hernia without obstruction or gangrene Status: Acute (3) Drug dependence Status: Chronic Hospital Course - Lab Results Lab Results: Micro Results 06/01/18 16:10 Blood Blood Culture - Preliminary NO GROWTH AFTER 3 DAYS 06/01/18 15:00 Blood Blood Culture - Preliminary NO GROWTH AFTER 3 DAYS 06/01/18 16:18 Urine,[place] Urine Culture - Final No Growth (<1,000 CFU/ML) Most Recent Lab Values WBC 14.5 K/uL (4.8-10.8) H 06/05/18 07:06 RBC 4.13 Mil/uL (4.40-5.90) L 06/05/18 07:06 Hgb 10.9 g/dL (12.0-18.0) L 06/05/18 07:06 Hct 33.2 % (35.0-51.0) L 06/05/18 07:06 MCV 80.3 fL (80.0-94.0) 06/05/18 07:06 MCH 26.4 pg (27.0-31.0) L 06/05/18 07:06 MCHC 32.9 g/dL (33.0-37.0) L 06/05/18 07:06 RDW 16.5 % (11.5-14.5) H 06/05/18 07:06 Plt Count 451 K/uL (130-400) H 06/05/18 07:06 MPV 8.0 fL (7.2-11.7) 06/05/18 07:06 Neut % (Auto) 75.6 % (50.0-75.0) H 06/05/18 07:06 Lymph % (Auto) 17.9 % (20.0-40.0) L 06/05/18 07:06 [place] % (Auto) 6.1 % (0.0-10.0) 06/05/18 07:06 Eos % (Auto) 0.2 % (0.0-4.0) 06/05/18 07:06 Baso % (Auto) 0.2 % (0.0-2.0) 06/05/18 07:06 Neut # (Auto) 10.9 K/uL (1.8-7.0) H 06/05/18 07:06 Lymph # (Auto) 2.6 K/uL (1.0-4.3) 06/05/18 07:06 [place] # (Auto) 0.9 K/uL (0.0-0.8) H 06/05/18 07:06 Eos # (Auto) 0.0 K/uL (0.0-0.7) 06/05/18 07:06 Baso # (Auto) 0.0 K/uL (0.0-0.2) 06/05/18 07:06 Neutrophils % (Manual) 89 % (50-75) H 06/02/18 10:57 Lymphocytes % (Manual) 6 % (20-40) L 06/02/18 10:57 Monocytes % (Manual) 5 % (0-10) 06/02/18 10:57 Platelet Estimate Normal (NORMAL) 06/02/18 10:57 Polychromasia Slight 06/02/18 10:57 Hypochromasia (manual) Slight 06/02/18 10:57 Anisocytosis (manual) Slight 06/02/18 10:57 pO2 25 mm/Hg (30-55) L 06/01/18 15:24 VBG pH 7.43 (7.32-7.43) 06/01/18 15:24 VBG pCO2 45 mmHg (40-60) 06/01/18 15:24 VBG HCO3 27.3 mmol/L 06/01/18 15:24 VBG Total CO2 31.3 mmol/L (22-28) H 06/01/18 15:24 VBG O2 Sat (Calc) 44.1 % (40-65) 06/01/18 15:24 VBG Base Excess 4.8 mmol/L (0.0-2.0) H 06/01/18 15:24 VBG Potassium 4.3 mmol/L (3.6-5.2) 06/01/18 15:24 Sodium 132.0 mmol/l (132-148) 06/01/18 15:24 Chloride 98.0 mmol/L (98-107) 06/01/18 15:24 Glucose 116 mg/dl (75-110) H 06/01/18 15:24 Lactate 2.2 mmol/L (0.7-2.1) H 06/01/18 15:24 Sodium 131 mmol/L (132-148) L 06/05/18 07:06 Potassium 4.3 mmol/L (3.6-5.2) 06/05/18 07:06 Chloride 99 mmol/L (98-107) 06/05/18 07:06 Carbon Dioxide 26 mmol/L (22-30) 06/05/18 07:06 Anion Gap 10 (10-20) 06/05/18 07:06 BUN 14 mg/dL (9-20) 06/05/18 07:06 Creatinine 0.6 mg/dL (0.8-1.5) L 06/05/18 07:06 Est GFR ( Amer) > 60 06/05/18 07:06 Est GFR (Non-Af Amer) > 60 06/05/18 07:06 Random Glucose 84 mg/dL (75-110) 06/05/18 07:06 Lactic Acid 1.2 mmol/L (0.7-2.1) 06/01/18 19:24 Calcium 8.0 mg/dl (8.6-10.4) L 06/05/18 07:06 Total Bilirubin 1.1 mg/dL (0.2-1.3) 06/05/18 07:06 AST 32 U/L (17-59) 06/05/18 07:06 ALT 63 U/L (21-72) 06/05/18 07:06 Alkaline Phosphatase 84 U/L (38-126) 06/05/18 07:06 Total Protein 6.3 g/dL (6.3-8.3) 06/05/18 07:06 Albumin 2.7 g/dL (3.5-5.0) L 06/05/18 07:06 Globulin 3.6 gm/dL (2.2-3.9) 06/05/18 07:06 Albumin/Globulin Ratio 0.8 (1.0-2.1) L 06/05/18 07:06 Lipase 17 U/L (23-300) L 06/01/18 15:04 Venous Blood Potassium 4.3 mmol/L (3.6-5.2) 06/01/18 15:24 Urine Color Yellow (YELLOW) 06/01/18 16:18 Urine Clarity Clear (Clear) 06/01/18 16:18 Urine pH 6.0 (5.0-8.0) 06/01/18 16:18 Ur Specific [place] 1.017 (1.003-1.030) 06/01/18 16:18 Urine Protein Negative mg/dL (NEGATIVE) 06/01/18 16:18 Urine Glucose (UA) Normal mg/dL (Normal) 06/01/18 16:18 Urine Ketones Negative mg/dL (NEGATIVE) 06/01/18 16:18 Urine Blood Negative (NEGATIVE) 06/01/18 16:18 Urine Nitrate Negative (NEGATIVE) 06/01/18 16:18 Urine Bilirubin 1+ (NEGATIVE) H 06/01/18 16:18 Urine Urobilinogen 4.0 mg/dL (0.2-1.0) 06/01/18 16:18 Ur Leukocyte Esterase Neg [place]/uL (Negative) 06/01/18 16:18 Urine WBC (Auto) 1 /hpf (0-5) 06/01/18 16:18 Urine RBC (Auto) < 1 /hpf (0-3) 06/01/18 16:18 Vancomycin Trough < 5.0 ug/mL (5.0-10.0) L 06/05/18 07:06 Urine Opiates Screen Positive (NEGATIVE) H 06/01/18 16:18 Urine Methadone Screen Negative (NEGATIVE) 06/01/18 16:18 Ur Barbiturates Screen Negative (NEGATIVE) 06/01/18 16:18 Ur Phencyclidine Scrn Negative (NEGATIVE) 06/01/18 16:18 Ur Amphetamines Screen Negative (NEGATIVE) 06/01/18 16:18 U Benzodiazepines Scrn Negative (NEGATIVE) 06/01/18 16:18 U Oth Cocaine Metabols Negative (NEGATIVE) 06/01/18 16:18 U Cannabinoids Screen Positive (NEGATIVE) H 06/01/18 16:18 Hep Bs Antigen Negative (NEGATIVE) 06/03/18 11:38 HIV 1&2 Antibody Screen Negative (NEGATIVE) 06/03/18 11:38 - Hospital Course Hospital Course: 47-YEAR-OLD MALE, PRESENTS TO THE EMERGENCY DEPARTMENT WITH MULT COMPLAINTS. PT CO COUGH, SOB, CHEST BEN X 2 WEEKS. +SMOKE DENIES HO ASTHMA. DENIES CP. HO PRIOR OPIATE ABUSE. ALSO CO EXAC CHRONIC UMB HERNIA X 2 DAYS. NO FEVER, ID WAS CONSULTED CT OF CHEST SHOWED NECROTISING PNEUMONIA PSYCH WAS CONSULTED FOR WITHDRAWAL FROM SUB. ABUSE PT THEN REFUSED IV AB FOR 48 HRS PT SIGNED AMA ATTENDING WAS NOT INFORMED OF DISCHARGE Discharge Exam - Head Exam Head Exam: NORMOCEPHALIC Discharge Plan - Follow Up Plan Condition: GOOD Disposition: AGAINST MEDICAL ADVICE
== END 2018-06-05 11:21 | disposition left against medical advice (07) | DRG 89 ==
LOC: C.ER 13:52 → C.9E 19:43 → C.3T 21:57 → C.3D 06-02 09:56 → C.3T 06-02 09:57
PROVIDERS: ADMIT Internal Medicine Cardiovascular Disease; ATTEND Internal Medicine Cardiovascular Disease
PROC: HZ2ZZZZ Detoxification Services for Substance Abuse Treatment (ICD-10-PCS; principal; 2018-06-03)
PROC: HZ80ZZZ Medication Management for Substance Abuse Treatment, Nicotine Replacement (ICD-10-PCS; 2018-06-03)
PROC: HZ59ZZZ Individual Psychotherapy for Substance Abuse Treatment, Supportive (ICD-10-PCS; 2018-06-03)
PROC: HZ46ZZZ Group Counseling for Substance Abuse Treatment, Psychoeducation (ICD-10-PCS; 2018-06-03)
DX: J18.9 Pneumonia, unspecified organism (principal); F11.23 Opioid dependence with withdrawal; R04.2 Hemoptysis; F11.229 Opioid dependence with intoxication, unspecified; J40 Bronchitis, not specified as acute or chronic; K52.9 Noninfective gastroenteritis and colitis, unspecified; F17.210 Nicotine dependence, cigarettes, uncomplicated; F41.9 Anxiety disorder, unspecified; G89.29 Other chronic pain